=== PATIENT | female | born 1995 ===

== ENCOUNTER → 2024-02-29 12:23 | Outpatient (BNVA) | payer OTHER, SELFPAY | PROVIDERS: Visit Provider Counselor Mental Health ==

== ENCOUNTER → 2024-02-29 12:23 | Outpatient (AMB) | payer OTHER, SELFPAY ==
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
== END ==
PROVIDERS: Visit Provider Counselor Mental Health
DX: F43.9 Reaction to severe stress, unspecified (principal); Z63.8 Other specified problems related to primary support group
CPT/HCPCS: 90791

== ENCOUNTER 2024-03-14 08:11 | Outpatient (AMB) | payer OTHER, SELFPAY ==
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
== END 2024-03-14 09:00 | disposition home or self-care (01) ==
LOC: HO.HOP 08:11
PROVIDERS: Visit Provider Counselor Mental Health
DX: F43.9 Reaction to severe stress, unspecified (principal)
CPT/HCPCS: 90837

== ENCOUNTER → 2024-03-14 08:11 | Outpatient (BNVA) | payer OTHER, SELFPAY | PROVIDERS: Visit Provider Counselor Mental Health ==

== ENCOUNTER → 2024-03-28 08:28 | Outpatient (BNVA) | payer OTHER, SELFPAY | PROVIDERS: Visit Provider Counselor Mental Health ==

== ENCOUNTER → 2024-03-28 08:28 | Outpatient (AMB) | payer OTHER, SELFPAY ==
--- NOTE | 2024-03-28 08:05 | A.OFFWM_ITS ---
Intake Intake Visit Reasons: VIDEO OP Therapy Behavioral Health Assessment Weight Management Therapy Therapy Notes Details Subjective: PT reports she is doing well with her health and . But, feeing stressed about concerns her workplace and with her parents as she's not working for them anymore as of this Wednesday. Objective: PT presents for a follow up visit via Telehealth. Discussed functioning and ongoing sources of stress. Supportive and reflective listening implemented. Identified triggers and responses. Analysis of scenarios for role playing. Worked on communication skills, role playing completed using I-statements and XYZ formula for effective communication. Assessment/Response: * Mental status: Anxious, oriented X3, alert, cooperative. Intact functioning despite Sx of anxiety due to stress. * Risk reported/identified: None PT was open and active in session. She responded well to modality. Plan: Continue bi-weekly sessions. Assessment & Plan Assessment & Plan (1) Trauma and stressor-related disorder: Code(s): F43.9 - Reaction to severe stress, unspecified Plan Continue meeting on a bi-weekly basis Next junior: 04/11/2024 at 8am. Via telehealth. Telehealth Telehealth Telehealth Platform: [facility] Location of provider rendering services: other Location of patient: other Patient Identification confirmed using: Name, : Yes Telehealth method: video Patient verbally consented to treatment: Yes Patient verbally consented to billing insurance company: Yes Patient informed of any privacy concerns related to visit: No Minutes spent on Phone/Video with Pt.: 55 Coding Level of Care Code Established Pt Tele Psytx >53 mins ([id number]) Patient Type Established Diagnoses Trauma and stressor-related disorder F43.9 Time Spent (min) 55 Comment Start time: 8:05am - End time: 9:00am.
== END ==
PROVIDERS: Visit Provider Counselor Mental Health
DX: F43.9 Reaction to severe stress, unspecified (principal)
CPT/HCPCS: 90837

== ENCOUNTER → 2024-04-11 08:10 | Outpatient (AMB) | payer OTHER, SELFPAY ==
--- NOTE | 2024-04-11 08:00 | MHC.WMTHER ---
Intake Intake Visit Reasons: VIDEO OP Therapy Behavioral Health Assessment Weight Management Therapy Therapy Notes Details Subjective: PT reports she has been dealing with mixed feelings. Happy about her pregancy, upset about recent family events and very sensitive at times; she recognizes this might be due to emotions. Objective: PT presents for a follow up visit via Telehealth CBT-based interventions used. Worked in Anxiety management, mainly on anticipated worries. Problem solving method to address current worries. Communication, role playing completed to address recent family events causing her upset feelings. Constructive feedback provided. Assessment/Response: Mental status: sensitive but WNL. Functioning is intact. Risk reported/identified: None reported or identified. PT was open, active and responded well to interventions. Plan: Continue sessions on a bi-weekly basis. Assessment & Plan Assessment & Plan (1) Trauma and stressor-related disorder: Code(s): F43.9 - Reaction to severe stress, unspecified Plan Homework: Find out about housing options. Continue sessions on a bi-weekly basis. Next junior: 04/25 @8am, TH. Telehealth Telehealth Telehealth Platform: [employer] Location of provider rendering services: other Location of patient: address on file Patient Identification confirmed using: Name, : Yes Telehealth method: video Patient verbally consented to treatment: Yes Patient verbally consented to billing insurance company: Yes Patient informed of any privacy concerns related to visit: Yes Minutes spent on Phone/Video with Pt.: 60 Coding Level of Care Code Established Pt Tele Psytx >53 mins ([id number]) Patient Type Established Diagnoses Trauma and stressor-related disorder F43.9 Time Spent (min) 60 Comment Start time: 8:00am, End time: 9:00am
== END ==
PROVIDERS: Visit Provider Counselor Mental Health
DX: F43.9 Reaction to severe stress, unspecified (principal)
CPT/HCPCS: 90837

== ENCOUNTER → 2024-04-11 08:10 | Outpatient (BNVA) | payer OTHER, SELFPAY | PROVIDERS: Visit Provider Counselor Mental Health ==

== ENCOUNTER → 2024-04-25 08:14 | Outpatient (BNVA) | payer OTHER, SELFPAY | PROVIDERS: Visit Provider Counselor Mental Health ==

== ENCOUNTER → 2024-04-25 08:14 | Outpatient (AMB) | payer OTHER, SELFPAY ==
--- NOTE | 2024-04-25 08:00 | A.OFFWM_ITS ---
Intake Intake Visit Reasons: VIDEO OP Therapy Behavioral Health Assessment Weight Management Therapy Therapy Notes Details Subjective: PT reports she has been very anxious and stressed due to her mother's housing issues, finances and other events. She had a panic attacks last week and has been outthinking and having intrusive thoughts and feeling more worried that usual. Objective: PT presents for a follow up visit via Telehealth. Discussed functioning and processed triggers. Completed ABC analysis and identified her responses. Worked in Sx management. Used CBT-based interventions. Assessment/Response: * Mental status: stressed, anxious, over thinking. Alert, Oriented X3. functioning:midly impaired. * Risk reported/identified: none PT was open, active and responded well to interventions.she presents aware of her triggers and was very insigtfull. Assessment & Plan Assessment & Plan (1) Trauma and stressor-related disorder: Code(s): F43.9 - Reaction to severe stress, unspecified Plan Follow up in 1 month, as client has an appointment 05/09. Next junior: 05/23 at 8am, telehealth. Telehealth Telehealth Telehealth Platform: [employer] Location of provider rendering services: other ([place], [place]) Location of patient: address on file Patient Identification confirmed using: Name, : Yes Telehealth method: video Patient verbally consented to treatment: Yes Patient verbally consented to billing insurance company: Yes Patient informed of any privacy concerns related to visit: Yes Minutes spent on Phone/Video with Pt.: 60 Coding Level of Care Code Established Pt Tele Psytx >53 mins ([id number]) Patient Type Established Diagnoses Trauma and stressor-related disorder F43.9 Time Spent (min) 60 Comment Start time: 8:00am, End time: 9:00am.
== END ==
PROVIDERS: Visit Provider Counselor Mental Health
DX: F43.9 Reaction to severe stress, unspecified (principal)
CPT/HCPCS: 90837

== ENCOUNTER 2024-05-23 08:13 | Outpatient (AMB) | payer OTHER, SELFPAY ==
--- NOTE | 2024-05-23 08:00 | A.OFFWM_ITS ---
Intake Intake Visit Reasons: VIDEO OP Therapy Behavioral Health Assessment Weight Management Therapy Therapy Notes Details Subjective: PT reports she has been dealing with different sources of stress. Feeling anxious and dealing with catastrophic thinking around . Objective: PT presents for a follow up visit via Telehealth. Processed sources of stress and discussed cycle of anxiety while reflecting on her own experience and how her responses fit on these and how to better cope with Sx while overcoming them. Worked in how to incorporate stress/anxiety management techniques on bedtime routine. Reflected in ways to continue setting boundaries with family and increasing attempts for adopting assertive style. Used CBT and CPT based interventions. Assessment/Response: * Mental status: anxious, outthinking, worried. Alert, oriented x3 * Risk reported/identified:none PT responded well to interventions. Agreed to implement techniques suggested. Plan: Continue sessions on a bi-weekly basis. We scheduled sessions up to august/2024. Assessment & Plan Assessment & Plan (1) Trauma and stressor-related disorder: Code(s): F43.9 - Reaction to severe stress, unspecified Plan Follow up in 2 weeks. Recommended to utilize a gratitude journal al bedtime, and implement other mindfulness techniques for bedtime to support restful night with less emotional distress. Next junior: 06/06/2024 at 8a,. Telehealth Telehealth Telehealth Telehealth Platform: [employer] Location of provider rendering services: other ([place], [place]) Location of patient: address on file Patient Identification confirmed using: Name, : Yes Telehealth method: video Patient verbally consented to treatment: Yes Patient verbally consented to billing insurance company: Yes Patient informed of any privacy concerns related to visit: Yes Minutes spent on Phone/Video with Pt.: 60 Coding Level of Care Code Established Pt Tele Psytx >53 mins ([id number]) Patient Type Established Diagnoses Trauma and stressor-related disorder F43.9 Time Spent (min) 60 Comment start time:8am, End time: 9am
== END 2024-05-23 14:32 | disposition home or self-care (01) ==
PROVIDERS: Visit Provider Counselor Mental Health
DX: F43.9 Reaction to severe stress, unspecified (principal)
CPT/HCPCS: 90837

== ENCOUNTER → 2024-06-06 08:09 | Outpatient (AMB) | payer OTHER, SELFPAY ==
--- NOTE | 2024-06-06 08:00 | MHC.WMTHER ---
Intake Intake Visit Reasons: VIDEO OP Therapy Behavioral Health Assessment Weight Management Therapy Therapy Notes Details Subjective: PT reports she was anxious last week, initially after developing a rash and then after she fall on her driveway. She is doing well now, reports she has been using tecniques provided, and after appointments with providers and getting positive feedback she is less worried. PT reported ongoing issues managing negative thinking. She got a coloring book to use when feeling anxious and has been doing with along with deep breathing and reports good results form it. Objective: PT presents for a F/up visit via telehealth. Discussed functioning and processed recent triggers, responses and coping mechanism used. Used CBT and mindfulness techniques for Sx management. completed a gratitude exercise and ways to increase the practice/engagement on spiritual, trina-based activities to reinforce flexible, hopeful thinking. Used cognitive challenging and re-framing on job-related stress. Constructive feedback provided. Assessment/Response: Mental status: stable, alert, oriented X3. Good functioning. Risk reported/identified: None PT responded well to interventions. Assessment & Plan Assessment & Plan (1) Trauma and stressor-related disorder: Code(s): F43.9 - Reaction to severe stress, unspecified Plan F/up in 1 month per client's request due to upcoming Holidays. She was already scheduled for 06/20, provider removed her from that day. Next junior: 07/04/2024 at 8am, [employer]. Telehealth Telehealth Telehealth Platform: [employer] Location of provider rendering services: other ([place], [place]) Location [place]: [place] Patient Identification confirmed using: Name, : Yes Telehealth method: video Patient verbally consented to treatment: Yes Patient verbally consented to billing insurance company: Yes Patient informed of any privacy concerns related to visit: Yes Minutes spent on Phone/Video with Pt.: 60 Coding Level of Care Code Established Pt Tele Psytx >53 mins ([id number]) Patient Type Established Diagnoses Trauma and stressor-related disorder F43.9 Time Spent (min) 60
== END ==
LOC: HO.HOP 08:09
PROVIDERS: Visit Provider Counselor Mental Health
DX: F43.9 Reaction to severe stress, unspecified (principal)
CPT/HCPCS: 90837

== ENCOUNTER → 2024-06-06 08:09 | Outpatient (BNVA) | payer OTHER, SELFPAY | PROVIDERS: Visit Provider Counselor Mental Health ==

== ENCOUNTER 2024-07-04 08:13 | Outpatient (AMB) | payer OTHER, SELFPAY ==
--- NOTE | 2024-07-04 08:00 | A.OFFWM_ITS ---
Intake Intake Visit Reasons: VIDEO OP Therapy Behavioral Health Assessment Weight Management Therapy Therapy Notes Details Subjective: PT reports she is 24 weeks . Due date 10/19/24. stated she had a great time around the holidays and things has been calmed in general, besides some stressfull events within the family. Objective: PT presents for a f/up visit via Telehealth. Discussed functioning and routine, PT shared about recent holidays celebration. Processed experiences triggering worry and anxiety symptoms, it's impact on her functioning and attempts to resolve it. Discussed problem-solving and calming skills to continue managing better these Sx. CBT and CPT implemented, while provided constructive feedback and used reflective listening. Assessment/Response: * Mental status: WNL * Risk reported/identified: None PT was active and engaged in the session, also responded well to interventions. Assessment & Plan Assessment & Plan (1) Trauma and stressor-related disorder: Code(s): F43.9 - Reaction to severe stress, unspecified Plan F/up in 1 month Next junior: 08/01/2024 at 8am, Telehealth Telehealth Telehealth Telehealth Platform: [employer] Location of provider rendering services: other ([place], [place]) Location of patient: other ([facility]. [place], [place]) Patient Identification confirmed using: Name, : Yes Telehealth method: video Patient verbally consented to treatment: Yes Patient verbally consented to billing insurance company: Yes Patient informed of any privacy concerns related to visit: Yes Minutes spent on Phone/Video with Pt.: 60 Coding Level of Care Code Established Pt Tele Psytx >53 mins ([id number]) Patient Type Established Diagnoses Trauma and stressor-related disorder F43.9 Time Spent (min) 60
== END 2024-07-04 11:18 | disposition home or self-care (01) ==
LOC: HO.HOP 08:13
PROVIDERS: Visit Provider Counselor Mental Health
DX: F43.9 Reaction to severe stress, unspecified (principal)
CPT/HCPCS: 90837

== ENCOUNTER → 2024-07-04 08:13 | Outpatient (BNVA) | payer OTHER, SELFPAY | PROVIDERS: Visit Provider Counselor Mental Health ==

== ENCOUNTER → 2024-08-01 08:00 | Outpatient (AMB) | payer OTHER, SELFPAY ==
--- NOTE | 2024-08-01 08:00 | A.OFFWM_ITS ---
Intake Intake Visit Reasons: VIDEO OP Therapy Behavioral Health Assessment Weight Management Therapy Therapy Notes Details Subjective: PT reports she has been stressed about finances, as his partner has been out of work and the financial load has been on her. On the other hand, has been easily overwhelmed and dealing with negative/catastrophic thoughts/images involving her pregancy. Objective: PT presents for a f/up visit via Telehealth. . CBT and CPT implemented, while provided constructive feedback and used reflective listening. We focused on problem solving, and exploration of alternatives based on the things out/within her control. PT is aware a lot of her fears are based on lack of knwledge and there are steps she can follow to have the answers she needs and have some re-assurance and peace of mind . Processed experiences triggering worry and anxiety symptoms, it's impact on her functioning and attempts to resolve it. Reviewed coping skills and plan for triggers. Assessment/Response: * Mental status: stressed but good functioning. * Risk reported/identified: None PT presents stable, less anxious and feeling grounded despite some financial stress. PT was active in session an responded well to intervention. Assessment & Plan Assessment & Plan (1) Trauma and stressor-related disorder: Code(s): F43.9 - Reaction to severe stress, unspecified Plan Homework: clarify her benefit package at work, what they offer in terms of detention of tax-benefit accounts. Continue meeting on a monthly basis. Next junior: 08/29/2024 at 8am, Telehealth Telehealth Telehealth Telehealth Platform: [employer] Location of provider rendering services: other ([place]. [place], [place]) Location of patient: other ([place], [place]) Patient Identification confirmed using: Name, : Yes Telehealth method: video Patient verbally consented to treatment: Yes Patient verbally consented to billing insurance company: Yes Patient informed of any privacy concerns related to visit: Yes Minutes spent on Phone/Video with Pt.: 60 Coding Level of Care Code Established Pt Tele Psytx >53 mins ([id number]) Patient Type Established Diagnoses Trauma and stressor-related disorder F43.9 Time Spent (min) 60
--- OUTSIDE RECORDS SUMMARY | 2024-08-01 08:18 | XMS_ITS | Clinical Summary ---
Author Organization [facility] Address [address] [place] [address] Care Team Providers Care Blood Bank Attendant Name Role Phone Zach Anthony MD Primary Care Provider + Allergies No known active allergies Medications Medication Sig Dispensed Refills Start Date End Date Status Cholecalciferol (VITAMIN D3) 20 MCG (800 UNIT) Tab Take 1 tablet by mouth daily. 30 Tab 2 07/12/2020 Active vitamin D (ERGOCALCIFEROL) 1.25 MG (75997 UT) capsule Take 1 capsule by mouth once a week for 360 days. One tablet once weekly 4 capsule 3 08/02/2020 Active Diclofenac Sodium 1 % GelIndications:Sprai n of left ankle, unspecified ligament, initial encounter Apply 2 g topically 3 times daily. 100 g 0 02/16/2022 Active Benzoyl Peroxide ([place] Benzoyl Peroxide Wash) 7 % LiquidIndications:Ac ne, unspecified acne type Apply 2 g topically 2 times daily. 100 mL 1 02/16/2022 Active buPROPion (WELLBUTRIN XL) 300 MG 24 hr tablet Take 1 Tablet by mouth daily. 0 12/01/2022 Active norethindrone-ethiny l estradiol (Necon 0.5/35, 28,) 0.5-35 MG-MCG per tablet Take 1 Tablet by mouth daily for 360 days. 84 Tablet 3 04/06/2023 Active Vit-Fe Fumarate-FA ( Plus) 27-1 MG TabIndications:Irreg ular menses Take 1 Tablet by mouth daily. 30 Tablet 12 02/23/2024 Active Active Problems Problem Noted Date PCOS (polycystic ovarian syndrome) 07/11 Irregular menses 02/07/2021 Last Assessment & Plan: HCG negative. Discussed normal frequency and length of menses Counseled on the effects of stress, changes in sleep, diet, and exercise on the endocrine system Will continue with expectant management at this time. Patient to return if irregular bleeding continues for >3 months. ASCUS of cervix with negative high risk HPV 10/28/2020 Abnormal uterine bleeding (AUB) 10/12/19 21 Last Assessment & Plan: Discussed normal frequency and length of menses Reviewed treatment options if AUB continues including expectant management, Motrin 600mg q6 hours for the first 3-5 days of menses, hormonal therapy or IUD. Patient elects for expectant management and Motrin therapy at this time. She will follow-up as needed. Morbid obesity due to excess calories ADHD (attention deficit hyperactivity di sorder) 08/05/2015 Depression 08/05/2015 Anxiety 08/05/2015 Acne 02/17/2012 Hidradenitis suppurativa 02/17/2012 Dyspepsia Resolved Problems Problem Noted Date Resolved Date Elevated TSH 08/13/2016 01/13/2019 Moderate obesity 08/05/2015 12/13/2017 Immunizations Name Administration Dates Next Due Influenza (> 6 Months) 06/26/2016 Tdap 12/23/2022 Family History Medical History Relation Name Comments Thyroid Disorder Brother Hypertension Father joint problems prosatate cancer Maternal Grandfather Diabetes Mother Glaucoma Mother Hypertension Mother Sleep Apnea Mother Uterine Cancer Mother had hysterect miriam Blindness Negative Hx CA Breast Negative Hx CA Ovarian Negative Hx Cataract Negative Hx Macular Degeneration Negative Hx Strabismus Negative Hx Relation Name Status Comments Brother Father Alive Maternal Grandfather Maternal Grandmother Mother Alive Bilateral BKA Social History Tobacco Use Types Packs/Day Years Used Date Smoking Tobacco: Never Smokeless Tobacco: Never Tobacco Cessation:Counseling Given: Not Answered Alcohol Use Standard Drinks/Week Comments No 0 (1 standard drink = 0.6 oz pur e alcohol) Sex Assigned at Date Recorded Not on file Job Start Date Occupation Industry Not on file Not on file Not on file Last Filed Vital Signs Vital Sign Reading Time Taken Comments Blood Pressure 128/72 02/23/2024 3:17 PM EDT Pulse 72 02/23/2024 3:17 PM EDT Temperature 36.4 ??C (97.5 ??F) 12/23/2022 3:06 PM ED T Respiratory Rate 14 12/28/2022 4:26 PM EDT Oxygen Saturation 100% 01/13/2019 10:14 AM EDT Inhaled Oxygen Concentration - - Weight 174.2 kg (384 lb) 02/23/2024 3:17 PM EDT Height 165.1 cm (5' 5 ) 02/23/2024 3:17 PM EDT Body Mass Index 63.9 02/23/2024 3:17 PM EDT Plan of Treatment Health Maintenance Due Date Last Done Comments Covid-19 Vaccine (#1) 1995 INFLUENZA (#1) 2024 06/26/2016 BMI CHECK/ADVISE 06/28/2024 04/06/2023, 03/2023, 12/23/2022, Additional history exists DEPRESSION SCREENING/FOLLOWUP 06/28/2024, 12/23/2022, 02/16/2022, Additional history exists SOCIAL NEEDS SCREENING 06/28/2024 12/23/2022 CERVICAL CANCER SCREENING 04/03/20252021, 10/18/2020, 07/30/2016 BASELINE HEALTH EXAM 18-39 12/24/202712/23, 04/29/2018, 12/13/2017, Additional history exists CHOLESTEROL SCREENING 12/26/2027 12/25/2022 , 04/29/2018, 06/26/2016, Additional history exists DTAP/TDAP/TD (2 - Td or Tdap) 12/23/2032 12/23/2022 PNEUMOCOCCAL VACCINE FOR HIG H RISK PATIENTS (#1) 2060 Care Teams Blood Bank Attendant Relationship Specialty Start Date End Date Zach Anthony MD [address] [place] [id number] PCP - General Internal Medicine 02/13/22
--- OUTSIDE RECORDS SUMMARY | 2024-08-01 08:18 | XMS_ITS | Encounter Summary ---
Author Organization [facility] Address [address] [place] [address] Care Team Providers Care Structural Steel Engineer Name Role Phone Emelina Moran MD Primary Care Provider Unavaila Sara Valle DO Primary Care Pro vider Unavailable Zach Anthony MD Primary Care Provider + Encounter Details Date Type Department Care Team Description 03/24/2016 Urgent Care Technician Report Medical Records [address] [place] [id number] Abstract, Provider Social History Tobacco Use Types Packs/Day Years Used Date Smoking Tobacco: Never Smokeless Tobacco: Never Alcohol Use Standard Drinks/Week Comments No 0 (1 standard drink = 0.6 oz pur e alcohol) Sex Assigned at Date Recorded Not on file Job Start Date Occupation Industry Not on file Not on file Not on file documented as of this encounter Plan of Treatment Not on file documented as of this encounter Visit Diagnoses Not on filedocumented in this encounter Care Teams Structural Steel Engineer Relationship Specialty Start Date End Date Emelina Moran MD PCP - General Internal Medicine 07/02/15 06/23/16 Sara Lopez DO PCP - General Internal Medicine 06/24/16 02/12/22 Zach Anthony MD [address] [place] [id number] PCP - General Internal Medicine 02/13/22 documented as of this encounter
--- OUTSIDE RECORDS SUMMARY | 2024-08-01 08:18 | XMS_ITS | Clinical Summary ---
Author Organization [facility] Address [address] [place] [address] Care Team Providers Care Systems Analyst Name Role Phone Zach Anthony MD Primary Care Pr ovider Allergies No known active allergies Medications Medication Sig Dispensed Refills Start Date End Date Status vit [id number] ( Plus Vitamin-Mineral) 27 mg iron- 1 mg tablet Take 1 Tablet by mouth daily. 02/23/2024 Active buPROPion XL (WELLBUTRIN XL) 300 mg 24 hr tablet Take 1 Tablet by mouth daily. 12/01/2022 Active diclofenac (VOLTAREN) 1 % topical gel Apply 2 g topically 3 times daily. 02/16/2022 Active benzoyl peroxide 7 % cleanser Apply 2 g topically 2 times daily. 02/16/2022 Active CHOLECALCIFEROL, VITAMIN D3, ORAL Cholecalciferol (VITAMIN D3) 20 MCG (800 UNIT) Tab Take 1 tablet by mouth daily 07/12/2020 Active Active Problems Problem Noted Date Diagnosed Date Dyspepsia 06/30/2024 PCOS (polycystic ovarian syndrome) 07/11/2021 Irregular menses 02/07/2021 Overview (06/30/2024): Last Assessment & Plan: HCG negative. Discussed normal frequency and length of menses Counseled on the effects of stress, changes in sleep, diet, and exercise on the endocrine system Will continue with expectant management at this time. Patient to return if irregular bleeding continues for >3 months. ASCUS of cervix with negative high risk HPV 05/0 08/2020 Abnormal uterine bleeding (AUB) 10/11/2020 Overview (06/30/2024): Last Assessment & Plan: Discussed normal frequency and length of menses Reviewed treatment options if AUB continues including expectant management, Motrin 600mg q6 hours for the first 3-5 days of menses, hormonal therapy or IUD. Patient elects for expectant management and Motrin therapy at this time. She will follow-up as needed. Morbid obesity due to excess calories 06/26/2016 ADHD (attention deficit hyperactivity disorder) 08/05/2015 Anxiety 08/05/2015 Depression 08/05/2015 Acne 02/17/2012 Hidradenitis suppurativa 02/17/2012 Immunizations Name Administration Dates Next Due Influenza trivalent, 0.5mL, preservative free (Fluarix; FluLaval; Fluzone) ages 6mo and older (Afluria) 3 years and older 06/26/2016 Tdap Tetanus diptheria acell ular pertussis (Boostrix; Adacel) 7yo and older 12/23/2022 Surgical History Surgery Date Site/Laterality Comments HYSTEROSCOPY 08/2020 PROCEDURE: UT HYSTEROSCOPY BX ENDOMETRIUM&/POLYPC W/WO D&C; COMMENT: Benign Medical History Medical History Date Comments ADHD (attention deficit hype ractivity disorder) 08/05/2015 DX:ADHD (attention deficit hyperactivity disorder) Depression 08/05/2015 DX:Depression; C OMMENT: therapy at [facility] Anxiety 08/05/2015 DX:Anxiety Moderate obesity 08/05/2015 DX:Moderate obe sity Dyspepsia DX:Dyspepsia PCOS (polycystic ovarian syndrome) DX:PCOS (polycystic ovarian syndrome) Family History Medical History Relation Name Comments Thyroid disease Brother Hypertension Father joint problems Other: prosatate cancer Maternal Grandfather Diabetes Mother Glaucoma Mother Hypertension Mother Sleep apnea Mother Uterine cancer Mother had hysterect miriam Blindness Neg Hx Breast cancer Neg Hx Cataracts Neg Hx Macular degeneration Neg Hx Ovarian cancer Neg Hx Strabismus Neg Hx Relation Name Status Comments Brother Father Alive Maternal Grandfather Maternal Grandmother Mother Alive Bilateral BKA Social History Tobacco Use Types Packs/Day Years Used Date Smoking Tobacco: Never Smokeless Tobacco: Never Alcohol Use Standard Drinks/Week Comments No 0 (1 standard drink = 0.6 oz pur e alcohol) Sex and Gender Information Value Date Recorded Sex Assigned at Not on file Gender Identity Not on file Sexual Orientation Not on file Obstetrics History Last Filed Vital Signs Vital Sign Reading Time Taken Comments Blood Pressure 110/80 04/06/2023 11:21 AM EDT Pulse 86 04/06/2023 11:21 AM EDT Temperature - - Respiratory Rate - - Oxygen Saturation - - Inhaled Oxygen Concentration - - Weight 171 kg (378 lb) 04/06/2023 11:21 AM EDT Height 165.1 cm (5' 5 ) 12/23/2022 3:06 PM EDT Body Mass Index 62.9 12/23/2022 3:06 PM EDT Plan of Treatment Health Maintenance Due Date Last Done Comments Hepatitis B Vaccines (1 of 3 - 19+ 3-dose series) 2014 Depression Screening 06/06/2022 HIV Screening 06/06/2022 Hepatitis C Screening 06/06/2022 Social Influencers of Health Screening 06/06/2022 COVID-19 Vaccine ( - 2023-2 5 season) 2024 Influenza Vaccine (#1) 2024 06/26/2016 Cervical Cancer Screening: P ap Smear 04/03/2025 04/03/2022, 04/03/2022, 10/18/2020 Cholesterol Screening (Lipid Panel) 12/26/2027 12/25/2022 DTaP,Tdap,and Td Vaccines (2 - Td or Tdap) 12/23/2032 12/23/2022 HIB Vaccines Aged Out No longer eligi ble based on patient's age to complete this topic HPV Vaccines Aged Out No longer eligi ble based on patient's age to complete this topic Hepatitis A Vaccines Aged Out No long er eligible based on patient's age to complete this topic IPV Vaccines Aged Out No longer eligi ble based on patient's age to complete this topic MMR Vaccines Aged Out No longer eligi ble based on patient's age to complete this topic Meningococcal ACWY Vaccine Aged Out N o longer eligible based on patient's age to complete this topic Pneumococcal Vaccine: Pediatrics (0 to 5 Years) and At-Risk Patients (6 to 64 Years) Aged Out No longer eligible b ased on patient's age to complete this topic RSV Immunization Patients Under 20 months Aged Out No longer eligible b ased on patient's age to complete this topic Varicella Vaccines Aged Out No longer eligible based on patient's age to complete this topic Procedures Procedure Name Priority Date/Time Associated Diagnosis Comments LIPID PANEL Routine 12/25/2022 PAP SMEAR Routine 04/03/2022 from Last 3 Months or Most Recently Relevant to Health Maintenance Results * Lipid panel (12/25/2022) LDL/HDL Ratio 3 0 - 4 Triglycerides 90 0 - 150 mg/dL Cholesterol 132 0 - 200 mg/dL HDL 49 40 mg/dL LDL Cholesterol 65 0 - 100 mg/dL Blood Venous blood specimen / Unknown Historical Provider MD LAB BLOOD ORDERAB LES * Pap smear (04/03/2022) 04/03/2022 Narrative HISTORICAL TESTING LAB RESULTING AGENCY - 04/13/2022 2:00 PM EDT [id number] THINPREP PAP, IMAGED: NEGATIVE FOR SQUAMOUS INTRAEPITHELIAL LESION AND MALIGNANCY . YODIT PETTY(ASCP) (CASE ELECTRONICALLY SIGNED 04 13 2022) ADEQUACY: SATISFACTORY ENDOCERVICAL/TRANSFORMATION ZONE COMPONENT PRESENT. SOURCE: THINPREP PAP HPV IF ASCUS, CERVICAL, IMAGED CLINICAL INFORMATION: HPV IF DIAGNOSIS OF ASCUS. PAP HX POSITIVE. [Z01.419] Yulia Barry CNM LAB CYTOLOGY ORDERAB LES HISTORICAL TESTING LAB RESULTING AGENCY from Last 3 Months or Most Recently Relevant to Health Maintenance Care Teams Systems Analyst Relationship Specialty Start Date End Date Zach Anthony MD [address] [place], [place] PCP - General Internal Medicine 02/13/22
--- OUTSIDE RECORDS SUMMARY | 2024-08-01 08:18 | XMS_ITS | Encounter Summary ---
Author Organization [facility] Address [address] [place] [address] Care Team Providers Care Director Of Graduate Admissions Name Role Phone Sara Lopez DO Primary Care Pro vider Unavailable Zach Anthony MD Primary Care Provider + Encounter Details Date Type Department Care Team Description 01/17/2021 Pt. Non Urgent Medical Question OBGYN - [place] [address] [place] [address] Heavenly Melendez CNM [address] [place] [address] Social History Tobacco Use Types Packs/Day Years Used Date Smoking Tobacco: Never Smokeless Tobacco: Never Alcohol Use Standard Drinks/Week Comments No 0 (1 standard drink = 0.6 oz pur e alcohol) Sex Assigned at Date Recorded Not on file Job Start Date Occupation Industry Not on file Not on file Not on file COVID-19 Exposure Response Date Recorded In the last month, have you been in contact with someone who was confirmed or suspected to have Coronavirus / COVID-19? No / Unsure 12/18/2020 9:40 AM EDT documented as of this encounter Miscellaneous Notes * Telephone Encounter - Brenda Pace R.N. - 01/17/2021 11:21 AM EDTFrom: Janiya Mcdaniel To: Heavenly Melendez CNM Sent: 01/17/2021 11:07 AM EDT Subject: Question Hello, I am continuing to bleed again and it's been three weeks straight of bleeding everyday. I amconsidering control to see if it actually works to stop the bleeding and get my cycle controlled. Do I need to make an appointment to see you or can I just get the prescripton sent to my pharmacy? Thank you, Janiya meeks documented in this encounter Plan of Treatment Not on file documented as of this encounter Visit Diagnoses Not on filedocumented in this encounter Care Teams Director Of Graduate Admissions Relationship Specialty Start Date End Date Sara Lopez DO PCP - General Internal Medicine 06/24/16 02/12/22 Zach Anthony MD [address] [place] [id number] PCP - General Internal Medicine 02/13/22 documented as of this encounter
--- OUTSIDE RECORDS SUMMARY | 2024-08-01 08:18 | XMS_ITS | Encounter Summary ---
Author Organization [facility] Address [address] [place] [address] Care Team Providers Care Landscape Architecture Teacher Name Role Phone Zach Anthony MD Primary Care Provider + Encounter Details Date Type Department Care Team Description 06/17/2022 Telephone Adult Medicine [address] [address] Zach Anthony MD [address] [place] [address] [phone] Social History Tobacco Use Types Packs/Day Years [...] on filedocumented in this encounter Care Teams Landscape Architecture Teacher Relationship Specialty Start Date End Date Zach Anthony MD [address] [place] [address] [phone] PCP - General Internal Medicine 02/13/22 documented as of this encounter
--- OUTSIDE RECORDS SUMMARY | 2024-08-01 08:18 | XMS_ITS | Encounter Summary ---
Author Organization [facility] Address [address] [place] [address] Care Team Providers Care Human Resources Support Specialist Name Role Phone Sara Lopez DO Primary Care Pro vider Unavailable Zach Anthony MD Primary Care Provider + Encounter Details Date Type Department Care Team Description 10/15/2020 [facility] Medical Records [address] [place] [id number] Abstract, Provider Social History Tobacco Use Types [...] have Coronavirus / COVID-19? No / Unsure 10/18/2020 2:29 PM EDT documented as of this encounter Plan of Treatment Not on file documented as of this encounter Visit Diagnoses Not on filedocumented in this encounter Care Teams Human Resources Support Specialist Relationship Specialty Start Date End Date Sara Lopez DO PCP - General Internal Medicine 06/24/16 02/12/22 Zach Anthony MD [address] [place] [id number] PCP - General Internal Medicine 02/13/22 documented as of this encounter
== END ==
LOC: HO.HOP 08:14
PROVIDERS: Visit Provider Counselor Mental Health
DX: F43.9 Reaction to severe stress, unspecified (principal)
CPT/HCPCS: 90837

== ENCOUNTER 2024-08-29 08:18 | Outpatient (AMB) | payer OTHER, SELFPAY ==
--- NOTE | 2024-08-29 08:20 | A.OFFWM_ITS ---
Intake Intake Visit Reasons: VIDEO OP Therapy Behavioral Health Assessment Weight Management Therapy Therapy Notes Details Subjective: The patient reports feeling generally well despite experiencing some recent stressful events. She notes tension in her relationship with her boyfriend, particularly around his role at home. She expresses frustration that she feels his needs are not being met and there is difficulty in addressing these concerns effectively. Objective: The patient presents for a follow-up visit. The session focused on discussing her current functioning and recent stressors. We explored the ongoing tension in her relationship and the challenges she is facing in communication with her boyfriend. The patient actively participated in practicing the XYZ formula for effective communication, which was introduced to help her express her concerns in a clear and constructive manner. Assessment/Response: * Mental Status: The patient appears well-groomed and appropriately dressed. She is alert and oriented to person, place, and time. Her mood is described as ?stressed,? but she is able to engage in conversation and reflect on her situation. Thought processes are logical and coherent. No signs of acute distress or significant cognitive impairment observed. * Risk: The patient denies any current or past thoughts of self-harm or harm to others. No indication of suicidal or homicidal ideation was reported during the session. She remains at low risk for safety concerns at this time. Assessment & Plan Assessment & Plan (1) Trauma and stressor-related disorder: Code(s): F43.9 - Reaction to severe stress, unspecified Plan Continue meeting on a monthly basis. Next junior: 09/26/2024 at 8am, Telehealth Telehealth Telehealth Telehealth Platform: Telephone Location of provider rendering services: other Location of patient: address on file Patient Identification confirmed using: Name, : Yes Telehealth method: voice only Patient verbally consented to treatment: Yes Patient verbally consented to billing insurance company: Yes Patient informed of any privacy concerns related to visit: Yes Minutes spent on Phone/Video with Pt.: 65 Coding Level of Care Code Established Pt Tele Psytx >53 mins (23083) Patient Type Established Diagnoses Trauma and stressor-related disorder F43.9 Time Spent (min) 65 Comment Start time: 8:00am, End time: 9:05am
--- OUTSIDE RECORDS SUMMARY | 2024-08-29 08:40 | XMS_ITS | Clinical Summary ---
Author Organization [facility] Address [address] [place] [address] Care Team Providers Care Ground Support Agent Name Role Phone Zach Anthony MD Primary Care Pr ovider Allergies No known active allergies Medications vit no.180-iron-fo lic ( Plus Vitamin-Minera l) 27 mg iron- 1 mg tablet Take 1 Tablet by mouth daily. 02/23/20 24 Active buPROPion XL (WELLBUTRIN XL) 300 mg 24 hr tablet Take 1 Tablet by mouth daily. 12/02/19 23 Active diclofenac (VOLTAREN) 1 % topical gel Apply 2 g topically 3 times daily. 02/17/20 22 Active benzoyl peroxide 7 % cleanser Apply 2 g topically 2 times daily. 02/17/20 22 Active CHOLECALCIFERO L, VITAMIN D3, ORAL Cholecalciferol (VITAMIN D3) 20 MCG (800 UNIT) Tab Take 1 tablet by mouth daily 07/12/19 21 Active Active Problems Problem Noted Date Diagnosed [...] of cervix with negative high risk HPV 05/08/2020 Abnormal uterine bleeding (AUB) 10/11/2020 Overview (06/30/2024): [...] Surgery Date Site/Laterality Comments HYSTEROSCOPY 08/2020 PROCEDURE: [place] HYSTEROSCOPY BX ENDOMETRIUM&/POLYPC W/WO D&C; COMMENT: Benign Medical History Medical History Date Comments ADHD (attention deficit hype ractivity disorder) 08/05/2015 DX:ADHD (attention deficit hyperactivity disorder) Depression 08/05/2015 DX:Depression; C OMMENT: therapy at [facility] Anxiety 08/05/2015 DX:Anxiety Moderate obesity 08/05/2015 DX:Moderate [...] drink = 0.6 oz pur e alcohol) Comments Unknown Sex and Gender Information Value Date Recorded Sex Assigned at Not on file Legal Sex Female 5:02 AM EST Gender Identity Not on file Sexual Orientation [...] patient's age to complete this topic Meningococcal B Vacine Aged Out No lo nger eligible based on patient's age to complete [...] 132 0 - 200 mg/dL HDL 49 >=40 mg/dL LDL Cholesterol 65 0 - 100 mg/dL Blood Venous blood specimen / Unknown Historical Provider MD LAB BLOOD ORDERABLES Eunice rich Result * Pap smear (04/03/2022) 04/03/2022 Narrative HISTORICAL TESTING LAB RESULTING AGENCY - 04/13/2022 2:00 PM EDT [id number] THINPREP PAP, IMAGED: NEGATIVE FOR SQUAMOUS INTRAEPITHELIAL LESION AND MALIGNANCY . YODIT PETTY(ASCP) (CASE ELECTRONICALLY SIGNED 04 13 2022) ADEQUACY: SATISFACTORY ENDOCERVICAL/TRANSFORMATION ZONE COMPONENT PRESENT. SOURCE: THINPREP PAP HPV IF ASCUS, CERVICAL, IMAGED CLINICAL INFORMATION: HPV IF DIAGNOSIS OF ASCUS. PAP HX POSITIVE. [Z01.419] Yulia Barry CNM LAB CYTOLOGY ORDERABLES Final Result HISTORICAL TESTING LAB RESULTING AGENCY from Last 3 Months or Most Recently Relevant to Health Maintenance Care Teams Ground Support Agent Relationship Specialty Start Date End Date Zach Anthony MD [address] [place], [place] PCP - General Internal Medicine 02/13/22
== END 2024-08-29 09:14 | disposition home or self-care (01) ==
LOC: HO.HOP 08:18
PROVIDERS: Visit Provider Counselor Mental Health
DX: F43.9 Reaction to severe stress, unspecified (principal)
CPT/HCPCS: 90837

== ENCOUNTER → 2024-08-29 08:18 | Outpatient (BNVA) | payer OTHER, SELFPAY | PROVIDERS: Visit Provider Counselor Mental Health ==

== ENCOUNTER 2024-09-26 08:13 | Outpatient (AMB) | payer OTHER, SELFPAY ==
--- NOTE | 2024-09-26 08:00 | A.OFFWM_ITS ---
Intake Intake Visit Reasons: VIDEO OP Therapy Behavioral Health Assessment Weight Management Therapy Therapy Notes Details Subjective: The patient reports feeling a mix of anxiety and excitement as her due date approaches. She mentions that her baby is breech, which will require a in a couple of weeks. While she is looking forward to the upcoming , she also expresses increased stress related to her work situation and the transition to maternity leave. The patient anticipates starting her leave soon, but the waiting period has caused some additional anxiety. Objective: The patient presents for a follow-up visit via Telehealth. During the session, we processed her emotions, focusing on the feelings of anxiety related to both her and work-related stress. The patient was able to identify sources of stress and discussed potential challenges in the upcoming weeks. We engaged in problem-solving strategies to address her concerns and worked on coping plans for various scenarios she is worried about, including how to manage stress during her maternity leave and the changes that may arise with the of her baby. Assessment/Response: * Mental Status: The patient appears engaged and communicative. Her mood fluctuates between anxiety and excitement, as she navigates the upcoming changes. Thought processes are logical, and she is able to reflect on her emotions in a coherent manner. There is no evidence of significant cognitive disturbance or acute distress. The patient demonstrates good insight into her feelings and is motivated to work on stress management. * Risk: The patient denies any thoughts of self-harm or harm to others. There are no signs of suicidal or homicidal ideation, and she reports feeling generally safe. Risk is low at this time. Assessment & Plan Assessment & Plan (1) Trauma and stressor-related disorder: Code(s): F43.9 - Reaction to severe stress, unspecified Plan - Continue to meet on a monthly basis for follow-up sessions. The patient is aware that sooner appointments are available if needed. - Continue to focus on stress management, coping strategies, and adjusting to the upcoming life changes. - Next appointment: 10/24/24 at 8:00 AM via Telehealth. Telehealth Telehealth Telehealth Platform: Telephone Location of provider rendering services: other Location of patient: address on file Patient Identification confirmed using: Name, : Yes Telehealth method: voice only Patient verbally consented to treatment: Yes Patient verbally consented to billing insurance company: Yes Patient informed of any privacy concerns related to visit: Yes Minutes spent on Phone/Video with Pt.: 60 Coding Level of Care Code Established Pt Tele Psytx >53 mins (77051) Patient Type Established Diagnoses Trauma and stressor-related disorder F43.9 Time Spent (min) 60
--- OUTSIDE RECORDS SUMMARY | 2024-09-26 08:28 | XMS_ITS | Clinical Summary ---
Author Organization [facility] Address [address] [place] [address] Care Team Providers Care Ekg Manager Name Role Phone Zach Anthony MD Primary Care Provider + Allergies No known active allergies Medications Medication Sig Dispensed Refills Start Date End Date Status Cholecalciferol (VITAMIN D3) 20 MCG (800 UNIT) Tab Take 1 tablet by mouth daily. 30 Tab 2 07/12/2020 Active vitamin D (ERGOCALCIFEROL) 1.25 MG (75592 UT) capsule Take 1 capsule by mouth once a week for 360 days. One tablet once weekly 4 capsule 3 08/02/2020 Active Diclofenac Sodium 1 % GelIndications:Sprai n of left ankle, unspecified ligament, initial encounter Apply 2 g topically 3 times daily. 100 g 0 02/16/2022 Active Benzoyl Peroxide (MO Benzoyl Peroxide Wash) 7 % LiquidIndications:Ac ne, [...] H RISK PATIENTS (#1) 2060 Care Teams Ekg Manager Relationship Specialty Start Date End Date Zach Anthony MD [address] [place] [phone] PCP - General Internal Medicine 02/13/22
--- OUTSIDE RECORDS SUMMARY | 2024-09-26 08:28 | XMS_ITS | Encounter Summary ---
Author Organization [facility] Address [address] [place] [address] Care Team Providers Care Pilot Plant Research Technician Name Role Phone Emelina Moran MD Primary Care Provider Unavaila Sara Valle DO Primary Care Pro vider Unavailable Zach Anthony MD Primary Care Provider + Encounter Details Date Type Department Care Team Description 03/24/2016 Principal Statistical Scientist Report Medical Records [address] [place] [id number] Abstract, Provider Social History Tobacco Use Types [...] on filedocumented in this encounter Care Teams Pilot Plant Research Technician Relationship Specialty Start Date End Date Emelina Moran MD PCP - General Internal Medicine 07/02/15 06/23/16 Sara Lopez DO PCP - General Internal Medicine 06/24/16 02/12/22 Zach Anthony MD [address] [place] [phone] PCP - General Internal Medicine 02/13/22 documented as of this encounter
--- OUTSIDE RECORDS SUMMARY | 2024-09-26 08:28 | XMS_ITS | Encounter Summary ---
Author Organization [facility] Address [address] [place] [address] Care Team Providers Care Supervisor [employer]builders Wood Name Role Phone Zach Anthony MD Primary Care Provider + Encounter Details Date Type Department Care Team Description 06/17/2022 Telephone Adult Medicine [address] [address] Zach Anthony MD [address] [place] [address] [phone] Social History Tobacco Use Types Packs/Day Years [...] on filedocumented in this encounter Care Teams Supervisor [employer] Relationship Specialty Start Date End Date Zach Anthony MD [address] [place] [address] [phone] PCP - General Internal Medicine 02/13/22 documented as of this encounter
--- OUTSIDE RECORDS SUMMARY | 2024-09-26 08:28 | XMS_ITS | Encounter Summary ---
Author Organization [facility] Address [address] [place] [address] Care Team Providers Care Sports Equipment Racker Name Role Phone Emelina Moran MD Primary Care Provider Unavaila Sara Valle DO Primary Care Pro vider Unavailable Zach Anthony MD Primary Care Provider + Encounter Details Date Type Department Care Team Description 08/05/2015 Release of Information Medical Records [address] [place] [phone] Abstract, Provider Social History Tobacco Use Types [...] on filedocumented in this encounter Care Teams Sports Equipment Racker Relationship Specialty Start Date End Date Emelina Moran MD PCP - General Internal Medicine 07/02/15 06/23/16 Sara Lopez DO PCP - General Internal Medicine 06/24/16 02/12/22 Zach Anthony MD [address] [place] [phone] PCP - General Internal Medicine 02/13/22 documented as of this encounter
--- OUTSIDE RECORDS SUMMARY | 2024-09-26 08:28 | XMS_ITS | Clinical Summary ---
Author Organization [facility] Address [address] [place] [address] Care Team Providers Care Miner Operator Name Role Phone Zach Anthony MD Primary [...] Surgery Date Site/Laterality Comments HYSTEROSCOPY 08/2020 PROCEDURE: [place] HYSTEROSCOPY BX ENDOMETRIUM&/POLYPC W/WO D&C; COMMENT: Benign Medical History Medical History Date Comments ADHD (attention deficit hype ractivity disorder) 08/05/2015 DX:ADHD (attention deficit hyperactivity disorder) Depression 08/05/2015 DX:Depression; C OMMENT: therapy at [facility] Anxiety 08/05/2015 DX:Anxiety Moderate obesity [...] RESULTING AGENCY - 04/13/2022 2:00 PM EDT [id number] THINPREP PAP, IMAGED: NEGATIVE FOR SQUAMOUS INTRAEPITHELIAL [...] Recently Relevant to Health Maintenance Care Teams Miner Operator Relationship Specialty Start Date End Date Zach Anthony MD [address] [place], [place] PCP - General Internal Medicine 02/13/22
--- OUTSIDE RECORDS SUMMARY | 2024-09-26 08:28 | XMS_ITS | Encounter Summary ---
Author Organization [facility] Address [address] [place] [address] Care Team Providers Care Apprentice Cosmetologist Name Role Phone Zach Anthony MD Primary Care Provider + Encounter Details Date Type Department Care Team Description 02/20/2022 Pt. Non Urgent Medical Question [facility] [address] [place] [address] Heavenly Melendez CNM [address] [place], [place] [phone] Social History Tobacco Use Types Packs/Day Years Used Date Smoking Tobacco: Never Smokeless Tobacco: Never Alcohol Use Standard Drinks/Week Comments No 0 (1 standard drink = 0.6 oz pur e alcohol) Sex Assigned at Date Recorded Not on file Job Start Date Occupation Industry Not on file Not on file Not on file COVID-19 Exposure Response Date Recorded In the last 10 days, have yo u been in contact with someone who was confirmed or suspected to have Coronavirus/COVID-19? No / Unsure 02/16/2022 10:25 AM EDT documented as of this encounter Plan of Treatment Not on file documented as of this encounter Visit Diagnoses Not on filedocumented in this encounter Care Teams Apprentice Cosmetologist Relationship Specialty Start Date End Date Zach Anthony MD [address] [place] [address] PCP - General Internal Medicine 02/13/22 documented as of this encounter
--- OUTSIDE RECORDS SUMMARY | 2024-09-26 08:28 | XMS_ITS | Encounter Summary ---
Author Organization [facility] Address [address] [place] [address] Care Team Providers Care Fowl Blood Tester Name Role Phone Sara Lopez DO Primary Care Pro vider Unavailable Zach Anthony MD Primary Care Provider + Encounter Details Date Type Department Care Team Description 09/26/2020 Orders Only Medical Records [address] [place] [address] Rodney Vanessa DO Social History Tobacco Use Types Packs/Day Years [...] on file documented as of this encounter Procedures Procedure Name Priority Date/Time Associated Diagnosis Comments OUTSIDE PATHOLOGY Routine 09/24/2020 documented in this encounter Results * OUTSIDE PATHOLOGY (09/24/2020) Rodney Vanessa DO OUTSIDE LAB documented in this encounter Visit Diagnoses Not on filedocumented in this encounter Care Teams Fowl Blood Tester Relationship Specialty Start Date End Date Sara Lopez DO PCP - General Internal Medicine 06/24/16 02/12/22 Zach Anthony MD [address] [place] [phone] PCP - General Internal Medicine 02/13/22 documented as of this encounter
== END 2024-09-26 09:10 | disposition home or self-care (01) ==
LOC: HO.HOP 08:13
PROVIDERS: Visit Provider Counselor Mental Health
DX: F43.9 Reaction to severe stress, unspecified (principal)
CPT/HCPCS: 90837

== ENCOUNTER → 2024-09-26 08:13 | Outpatient (BNVA) | payer OTHER, SELFPAY | PROVIDERS: Visit Provider Counselor Mental Health ==

== ENCOUNTER 2024-11-08 14:46 | Outpatient (AMB) | payer OTHER, SELFPAY ==
--- NOTE | 2024-11-08 14:30 | A.OFFWM_ITS ---
Intake Intake Visit Reasons: VIDEO OP Therapy Behavioral Health Assessment Weight Management Therapy Therapy Notes Details Subjective: Patient delivered her baby boy on 10/22/2024 and presents today for a follow-up behavioral health visit via Telehealth. She reports struggling with the adjustment due to limited support at home. Her partner returned to work one week after the baby was born, leaving her to manage much of the care alone. Patient also shared feelings of guilt and disappointment related to setbacks with the baby?s weight and the need to supplement with formula. She expressed emotional and physical exhaustion, along with some anxiety about whether she is ?doing things right? as a new mother. Objective: Patient appeared tired but engaged and motivated to talk. Explored current functioning and emotional adjustment to motherhood, particularly challenges related to sleep deprivation, reduced self-care (e.g., irregular eating, lack of rest), and the demands of the stage. Provided validation and normalization of her experiences and emotional responses. Applied Cognitive Processing Therapy (CPT) techniques to explore unhelpful beliefs and reframe negative thinking related to guilt, self-expectations, and performance as a mother. Celebrated her resilience, emotional insight, and efforts to castaneda with her child despite challenges. Used a problem-solving approach to identify small, manageable strategies for self-care, rest, and asking for support. Introduced a brief mindfulness exercise to promote emotional grounding and stress reduction. Proposed initiating a behavioral activation plan to help the patient identify and engage in small, meaningful activities that promote well-being and structure during this transition. Assessment/Response: * Mental status:Tired, emotionally sensitive, but cooperative and oriented. Thought process clear. Insight and motivation present. * Functioning: Mild functional impairment due to exhaustion and low support; able to care for . * Risk: No suicidal ideation, self-harm, or harm to others reported or observed. Assessment & Plan Assessment & Plan (1) Trauma and stressor-related disorder: Code(s): F43.9 - Reaction to severe stress, unspecified Plan * Continue supportive therapy with a focus on adjustment to motherhood, emotional regulation, and realistic self-expectations. * Begin behavioral activation plan tailored to needs and available support. * Encourage ongoing use of mindfulness strategies between sessions. * Patient to identify 1?2 self-care tasks to prioritize before next session (e.g., 10-minute rest, eating a full meal, or asking for help). * Monitor for symptoms of depression and reassess support needs regularly. Next Appointment: Scheduled for 1 week via Telehealth. 11/15 at 2:30pm Telehealth Telehealth Telehealth Platform: [employer] Location of provider rendering services: other Location of patient: address on file Patient Identification confirmed using: Name, : Yes Telehealth method: video Patient verbally consented to treatment: Yes Patient verbally consented to billing insurance company: Yes Patient informed of any privacy concerns related to visit: Yes Minutes spent on Phone/Video with Pt.: 75 Coding Level of Care Code Established Pt Tele Psytx >53 mins (60074) Patient Type Established Diagnoses Trauma and stressor-related disorder F43.9 Time Spent (min) 75
--- OUTSIDE RECORDS SUMMARY | 2024-11-08 14:48 | XMS_ITS | Encounter Summary ---
Author Organization [facility] Address [address] [place] [address] Care Team Providers Care Parts Salesperson Name Role Phone Zach Anthony MD Primary Care Provider + Reason for Visit * Reason Comments E-prescribe Rx Request Encounter Details Date Type Department Care Team Description 02/20/2022 Refill OBGYN - [place] [address] [place] [address] Heavenly Melendez CNM [address] [place], [place] [phone] E-prescribe Rx Request Social History Tobacco Use Types Packs/Day Years [...] Recorded In the last 10 days, have mauricio hobbs been in contact with someone who was confirmed or suspected to have Coronavirus/COVID-19? No / Unsure 02/16/2022 10:25 AM EDT documented as of this encounter Miscellaneous Notes * Telephone Encounter - Heavenly Melendez CNM - 02/24/2022 11:54 AM EDT I refilled it for her to get her to that appointment. * Telephone Encounter - Jeb [place] - 02/23/2022 2:59 PM EDT CALLED PT, lvm . Awaiting return call Pt has problem visit 03-09-22 for irregular bleeding on ocp Inquiring if she is still requesting refill * Telephone Encounter - Kerri Crabtree - 02/23/2022 12:25 PM EDT WHEN WAS THE PATIENTS LAST ANNUAL MAKE UP WORKER EXAM? 10/18/20 Does patient have an upcoming appointment? Yes 04/03/22 (THE MEDICATION REQUESTED IS ON THE MED LIST ABOVE) Did you check the Pharmacy information above?: YES Indicate how soon the patient needs the script: BY THE END OF THE DAY Patient would like script to be: E-PRESCRIBED/FAXED TO PHARMACY Is the doctor here today?: NO Can the message wait until the doctor returns?: NO Has the patient been told that the prescription will not be filled until the end of the day? NO Payor: [employer] [facility] / Plan: EPO $30 [place] [id number] / Product Type: EPO documented in this encounter Plan of Treatment Not on file documented as of this encounter Visit Diagnoses Not on filedocumented in this encounter Care Teams Parts Salesperson Relationship Specialty Start Date End Date Zach Anthony MD [address] [place] [address] PCP - General Internal Medicine 02/13/22 documented as of this encounter
--- OUTSIDE RECORDS SUMMARY | 2024-11-08 14:48 | XMS_ITS | Encounter Summary ---
Author Organization [facility] Address [address] [place] [address] Care Team Providers Care Manometer Technician Name Role Phone Sara Lopez DO Primary Care Pro vider Unavailable Zach Anthony MD Primary Care Provider + Encounter Details Date Type Department Care Team Description 10/15/2020 [facility] Medical Records [address] [place] [phone] Abstract, Provider Social History Tobacco Use Types [...] on filedocumented in this encounter Care Teams Manometer Technician Relationship Specialty Start Date End Date Sara Lopez DO PCP - General Internal Medicine 06/24/16 02/12/22 Zach Anthony MD [address] [place] [id number] PCP - General Internal Medicine 02/13/22 documented as of this encounter
--- OUTSIDE RECORDS SUMMARY | 2024-11-08 14:48 | XMS_ITS | Clinical Summary ---
Author Organization [facility] Address [address] [place] [address] Care Team Providers Care Draw Furnace Tender Name Role Phone Zach Anthony MD Primary Care Provider + Allergies No known active allergies Medications Medication Sig Dispensed Refills Start Date End Date Status Cholecalciferol (VITAMIN D3) 20 MCG (800 UNIT) Tab Take 1 tablet by mouth daily. 30 Tab 2 07/12/2020 Active vitamin D (ERGOCALCIFEROL) 1.25 MG (36143 UT) capsule Take 1 capsule by mouth once a week for 360 days. One tablet once weekly 4 capsule 3 08/02/2020 Active Diclofenac Sodium 1 % GelIndications:Sprai n of left ankle, unspecified ligament, initial encounter Apply 2 g topically 3 times daily. 100 g 0 02/16/2022 Active Benzoyl Peroxide ([place] Benzoyl Peroxide Wash) 7 % LiquidIndications:Ac ne, [...] Last Done Comments Covid-19 Vaccine (#1) 1995 BMI CHECK/ADVISE 06/28/2024 04/06/2023, 03/2023, 12/23/2022, Additional history exists DEPRESSION SCREENING/FOLLOWUP 06/28/2024, 12/23/2022, 02/16/2022, Additional history exists SOCIAL NEEDS SCREENING 06/28/2024 12/23/2022 INFLUENZA (Season Ended) 2025 06/26/2016 CERVICAL CANCER SCREENING 04/03/20252021, 10/18/2020, 07/30/2016 BASELINE HEALTH EXAM 18-39 12/24/202712/23, 04/29/2018, 12/13/2017, Additional history exists CHOLESTEROL SCREENING 12/26/2027 12/25/2022 , 04/29/2018, 06/26/2016, Additional history exists DTAP/TDAP/TD (2 - Td or Tdap) 12/23/2032 12/23/2022 PNEUMOCOCCAL VACCINE FOR HIG H RISK PATIENTS (#1) 2060 Care Teams Draw Furnace Tender Relationship Specialty Start Date End Date Zach Anthony MD [address] [place] [phone] PCP - General Internal Medicine 02/13/22
--- OUTSIDE RECORDS SUMMARY | 2024-11-08 14:48 | XMS_ITS | Encounter Summary ---
Author Organization [facility] Address [address] [place] [address] Care Team Providers Care Hazardous Substances Engineer Name Role Phone Sara Lpoez DO Primary Care Pro vider Unavailable Zach Anthony MD Primary Care Provider + Encounter Details Date Type Department Care Team Description 01/17/2021 Pt. Non Urgent Medical Question OBGYN - [place] [address] [place] [address] Heavenly Melendez CNM [address] [place] [address] Social History Tobacco Use Types Packs/Day Years [...] on filedocumented in this encounter Care Teams Hazardous Substances Engineer Relationship Specialty Start Date End Date Sara Lopez DO PCP - General Internal Medicine 06/24/16 02/12/22 Zach Anthony MD [address] [place] [id number] PCP - General Internal Medicine 02/13/22 documented as of this encounter
--- OUTSIDE RECORDS SUMMARY | 2024-11-08 14:48 | XMS_ITS | Encounter Summary ---
Author Organization [facility] Address [address] [place] [address] Care Team Providers Care Hospital Plan Administrator Name Role Phone Emelina Moran MD Primary Care Provider Unavaila Sara Valle DO Primary Care Pro vider Unavailable Zach Anthony MD Primary Care Provider + Encounter Details Date Type Department Care Team Description 08/05/2015 Release of Information Medical Records [address] [place] [phone] Abstract, Provider Social History Tobacco Use Types [...] on filedocumented in this encounter Care Teams Hospital Plan Administrator Relationship Specialty Start Date End Date Emelina Moran MD PCP - General Internal Medicine 07/02/15 06/23/16 Sara Lopez DO PCP - General Internal Medicine 06/24/16 02/12/22 Zach Anthony MD [address] [place] [phone] PCP - General Internal Medicine 02/13/22 documented as of this encounter
--- OUTSIDE RECORDS SUMMARY | 2024-11-08 14:49 | XMS_ITS | Clinical Summary ---
Author Organization [facility] Address [address] [place] [address] Care Team Providers Care Mine Surveyor Name Role Phone Zach Anthony MD Primary [...] of cervix with negative high risk HPV /08/2020 Abnormal uterine bleeding (AUB) 10/11/2020 Overview (06/30/2024): [...] needed. Morbid obesity due to excess calories ([facility] V24, [facility] V28) 06/26/2016 ADHD (attention deficit hyperactivity disorder) 08/05/2015 Anxiety 08/05/2015 Depression 08/05/2015 Acne 02/17/2012 Hidradenitis suppurativa 02/17/2012 Immunizations Name Administration Dates Next Due Influenza trivalent, 0.5mL, preservative free (Fluarix; FluLaval; Fluzone) ages 6mo and older (Afluria) 3 years and older 06/26/2016 Tdap Tetanus diptheria acell ular pertussis (Boostrix; Adacel) 7yo and older 12/23/2022 Surgical History Surgery Date Site/Laterality Comments HYSTEROSCOPY 08/2020 PROCEDURE: ID HYSTEROSCOPY BX ENDOMETRIUM&/POLYPC W/WO D&C; COMMENT: Benign Medical History Medical History Date Comments ADHD (attention deficit hype ractivity disorder) 08/05/2015 DX:ADHD (attention deficit hyperactivity disorder) Depression 08/05/2015 DX:Depression; C OMMENT: therapy at [facility] Anxiety 08/05/2015 DX:Anxiety Moderate obesity [...] - 2023-2 5 season) 2024 Influenza Vaccine (Season Ended) 2025 06/26/2016 Cervical Cancer Screening: P ap Smear [...] age to complete this topic Meningococcal B Vaccine Aged Out No l onger eligible based on patient's age to complete [...] RESULTING AGENCY - 04/13/2022 2:00 PM EDT [id number] THINPREP PAP, IMAGED: NEGATIVE FOR SQUAMOUS INTRAEPITHELIAL [...] Recently Relevant to Health Maintenance Care Teams Mine Surveyor Relationship Specialty Start Date End Date Zach Anthony MD [address] [facility] [place], [place] PCP - General Internal Medicine 02/13/22
--- OUTSIDE RECORDS SUMMARY | 2024-11-08 14:49 | XMS_ITS | Encounter Summary ---
Author Organization [facility] Address [address] [place] [address] Care Team Providers Care Billing Administrator Name Role Phone Sara Lopez DO Primary Care Pro vider Unavailable Zach Anthony MD Primary Care Provider + Encounter Details Date Type Department Care Team Description 08/14/2016 [facility] Medical Records [address] [place] [id number] Abstract, Provider Social History Tobacco Use Types [...] on filedocumented in this encounter Care Teams Billing Administrator Relationship Specialty Start Date End Date Sara Lopez DO PCP - General Internal Medicine 06/24/16 02/12/22 Zach Anthony MD [address] [place] [phone] PCP - General Internal Medicine 02/13/22 documented as of this encounter
== END 2024-11-08 16:09 | disposition home or self-care (01) ==
LOC: HO.HOP 14:46
PROVIDERS: Visit Provider Counselor Mental Health
DX: F43.9 Reaction to severe stress, unspecified (principal)
CPT/HCPCS: 90837

== ENCOUNTER → 2024-11-08 14:46 | Outpatient (BNVA) | payer OTHER, SELFPAY | PROVIDERS: Visit Provider Counselor Mental Health ==

== ENCOUNTER 2024-11-15 14:41 | Outpatient (AMB) | payer OTHER, SELFPAY ==
--- NOTE | 2024-11-15 14:30 | A.OFFWM_ITS ---
Intake Intake Visit Reasons: VIDEO OP Therapy Behavioral Health Assessment Weight Management Therapy Therapy Notes Details Subjective: PT reports feeling better overall. She shared that she has decided to start reading again, went for a walk two days ago, and has begun watching shows at night when the baby has difficulty sleeping. She also had a conversation with her boyfriend, who is now taking one warehouse supervisor 3rd shift of 2?3 hours to allow her to get several consecutive hours of sleep and help reduce her sleep deprivation. Objective: PT presents for a f/up junior via Telehealth. . Discussed functioning, positive changes and ongoing needs. PHQ-9 administered. CBT and CPT implemented in todays session to support PT at: - Identified and challenged cognitive di stortions related to sleep and self- blame and reframing negative thoughts about parenting and rest. -Reinforcing the use of behavioral acti vation plan for her engagement in self- care activities (reading, walking, relaxing at night). - Implementing problem-solving around [facility] routines and partner support. Assessment/Response: * Mental status: Eythymic but tired. * Risk reported/identified: none. Elevated PHQ-9 scores however explained by current transitionin to becoming a parent and sleep deprovation from the stage of her child. Questionnaires PHQ-9 Over the last 2 weeks, how often have you been bothered by any of the following problems? 1. Little interest or pleasure in doing things: not at all 2. Feeling down, depressed, or hopeless: not at all 3. Trouble falling or staying asleep, or sleeping too much: nearly every day (staying asleep) 4. Feeling tired or having little energy: nearly every day 5. Poor appetite or overeating: several days 6. Feeling bad about yourself - or that you are a failure or have let yourself or your family down: several days 7. Trouble concentrating on things, such as reading the newspaper or watching television: not at all 8. Moving or speaking so slowly that other people could have noticed. Or the opposite - being so fidgety or restless that you have been moving around a lot more than usual: not at all 9. Thoughts that you would be better off or of hurting yourself in some way: not at all Total score: 8 Depression Screening Interpretation: Positive (Some Sx are explained due to and adjustment to having a . ) Depression Screening Done: Yes 47588 - PHQ-9 Billing: Yes Source: Developed by Drs. Jayson Hernandez, Joaquina Ellis, Alfie Mercer and colleagues, with an educational carlota from [employer]. Assessment & Plan Assessment & Plan (1) Trauma and stressor-related disorder: Code(s): F43.9 - Reaction to severe stress, unspecified Plan Continue sessions on a bi-weebli basis. Next junior: 11/30/2024 at 2pm. Via Telehealth. Telehealth Telehealth Telehealth Platform: [employer] Location of provider rendering services: other Location of patient: address on file Patient Identification confirmed using: Name, : Yes Telehealth method: video Patient verbally consented to treatment: Yes Patient verbally consented to billing insurance company: Yes Patient informed of any privacy concerns related to visit: Yes Minutes spent on Phone/Video with Pt.: 60 Coding Level of Care Code Established Pt Tele Psytx >53 mins (19821) Patient Type Established Diagnoses Trauma and stressor-related disorder F43.9 Additional Codes PHQ-9 - 95415 - PHQ-9 Billing: Yes ([id number]) Time Spent (min) 60
--- OUTSIDE RECORDS SUMMARY | 2024-11-15 14:50 | XMS_ITS | Encounter Summary ---
Author Organization [facility] Address [address] [place] [address] Care Team Providers Care Automotive Worker Foreman Name Role Phone Zach Anthony MD Primary Care Provider + Encounter Details Date Type Department Care Team Description 06/17/2022 Telephone Adult Medicine [address] [address] Zach Anthony MD [address] [place] [address] [phone] Social History Tobacco Use Types Packs/Day Years [...] on filedocumented in this encounter Care Teams Automotive Worker Foreman Relationship Specialty Start Date End Date Zach Anthony MD [address] [place] [address] [phone] PCP - General Internal Medicine 02/13/22 documented as of this encounter
--- OUTSIDE RECORDS SUMMARY | 2024-11-15 14:50 | XMS_ITS | Clinical Summary ---
Author Organization [facility] Address [address] [place] [address] Care Team Providers Care Supervisor Fitting Name Role Phone Zach Anthony MD Primary [...] needed. Morbid obesity due to excess calories ([facility] V24, [facility] V28) 06/26/2016 ADHD (attention deficit [...] Depression 08/05/2015 DX:Depression; C OMMENT: therapy at [facility] Anxiety 08/05/2015 DX:Anxiety Moderate obesity [...] RESULTING AGENCY - 04/13/2022 2:00 PM EDT [id number] THINPREP PAP, IMAGED: NEGATIVE FOR SQUAMOUS INTRAEPITHELIAL [...] Recently Relevant to Health Maintenance Care Teams Supervisor Fitting Relationship Specialty Start Date End Date Zach Anthony MD [address] [facility] [place], [place] PCP - General Internal Medicine 02/13/22
--- OUTSIDE RECORDS SUMMARY | 2024-11-15 14:50 | XMS_ITS | Clinical Summary ---
Author Organization [facility] Address [address] [place] [address] Care Team Providers Care Leveling Machine Operator Name Role Phone Zach Anthony MD Primary Care Provider + Allergies No known active allergies Medications Medication Sig Dispensed Refills Start Date End Date Status Cholecalciferol (VITAMIN D3) 20 MCG (800 UNIT) Tab Take 1 tablet by mouth daily. 30 Tab 2 07/12/2020 Active vitamin D (ERGOCALCIFEROL) 1.25 MG (88760 UT) capsule Take 1 capsule by mouth once a week for 360 days. One tablet once weekly 4 capsule 3 08/02/2020 Active Diclofenac Sodium 1 % GelIndications:Sprai n of left ankle, unspecified ligament, initial encounter Apply 2 g topically 3 times daily. 100 g 0 02/16/2022 Active Benzoyl Peroxide ([place] Benzoyl Peroxide Wash) 7 % LiquidIndications:Ac ne, [...] H RISK PATIENTS (#1) 2060 Care Teams Leveling Machine Operator Relationship Specialty Start Date End Date Zach Anthoyn MD [address] [place] [phone] PCP - General Internal Medicine 02/13/22
--- OUTSIDE RECORDS SUMMARY | 2024-11-15 14:50 | XMS_ITS | Encounter Summary ---
Author Organization [facility] Address [address] [place] [address] Care Team Providers Care Stage Set Designer Name Role Phone Sara Lopez DO Primary Care Pro vider Unavailable Zach Anthony MD Primary Care Provider + Encounter Details Date Type Department Care Team Description 09/26/2020 Orders Only Medical Records [address] [place] [address] Rodney Vanessa DO Social History Tobacco Use [...] on filedocumented in this encounter Care Teams Stage Set Designer Relationship Specialty Start Date End Date Sara Lopez DO PCP - General Internal Medicine 06/24/16 02/12/22 Zach Anthony MD [address] [place] [address] PCP - General Internal Medicine 02/13/22 documented as of this encounter
--- OUTSIDE RECORDS SUMMARY | 2024-11-15 14:50 | XMS_ITS | Encounter Summary ---
Author Organization [facility] Address [address] [place] [address] Care Team Providers Care Line Leader Name Role Phone Emelina Moran MD Primary Care Provider Unavaila Sara Valle DO Primary Care Pro vider Unavailable Zach Anthony MD Primary Care Provider + Encounter Details Date Type Department Care Team Description 03/24/2016 Topline Beading Machine Tender Report Medical Records [address] [place] [address] Abstract, Provider Social History Tobacco Use Types [...] on filedocumented in this encounter Care Teams Line Leader Relationship Specialty Start Date End Date Emelina Moran MD PCP - General Internal Medicine 07/02/15 06/23/16 Sara Lopez DO PCP - General Internal Medicine 06/24/16 02/12/22 Zach Anthony MD [address] [place] [phone] PCP - General Internal Medicine 02/13/22 documented as of this encounter
--- OUTSIDE RECORDS SUMMARY | 2024-11-15 14:50 | XMS_ITS | Encounter Summary ---
Author Organization [facility] Address [address] [place] [address] Care Team Providers Care Sales Development Director Name Role Phone Sara Lopez DO Primary Care Pro vider Unavailable Zach Anthony MD Primary Care Provider + Encounter Details Date Type Department Care Team Description 01/17/2021 Pt. Non Urgent Medical Question OBGYN - [place] [address] [place] [address] Heavenly Melendez CNM [address] [place] [address] Social History Tobacco Use Types Packs/Day Years [...] on filedocumented in this encounter Care Teams Sales Development Director Relationship Specialty Start Date End Date Sara Lopez DO PCP - General Internal Medicine 06/24/16 02/12/22 Zach Anthony MD [address] [place] [phone] PCP - General Internal Medicine 02/13/22 documented as of this encounter
--- OUTSIDE RECORDS SUMMARY | 2024-11-15 14:50 | XMS_ITS | Encounter Summary ---
Author Organization [facility] Address [address] [place] [address] Care Team Providers Care Manager Production Name Role Phone Zach Anthony MD Primary Care Provider + Encounter Details Date Type Department Care Team Description 02/20/2022 Pt. Non Urgent Medical Question [facility] [place] [address] [place] [address] Heavenly Melendez CNM [address] [place], [place] [phone] Social History Tobacco Use Types Packs/Day Years [...] on filedocumented in this encounter Care Teams Manager Production Relationship Specialty Start Date End Date Zach Anthony MD [address] [place] [address] PCP - General Internal Medicine 02/13/22 documented as of this encounter
--- OUTSIDE RECORDS SUMMARY | 2024-11-15 14:50 | XMS_ITS | Encounter Summary ---
Author Organization [facility] Address [address] [place] [address] Care Team Providers Care Warehouse Receiving Supervisor Name Role Phone Sara Lopez DO Primary Care Pro vider Unavailable Zach Anthony MD Primary Care Provider + Encounter Details Date Type Department Care Team Description 10/15/2020 [facility] Medical Records [address] [place] [address] Abstract, Provider Social History Tobacco Use Types [...] on filedocumented in this encounter Care Teams Warehouse Receiving Supervisor Relationship Specialty Start Date End Date Sara Lopez DO PCP - General Internal Medicine 06/24/16 02/12/22 Zach Anthony MD [address] [place] [phone] PCP - General Internal Medicine 02/13/22 documented as of this encounter
== END 2024-11-15 15:29 | disposition home or self-care (01) ==
LOC: HO.HOP 14:41
PROVIDERS: Visit Provider Counselor Mental Health
DX: F43.9 Reaction to severe stress, unspecified (principal)
CPT/HCPCS: 90837

== ENCOUNTER 2024-11-30 14:27 | Outpatient (AMB) | payer OTHER, SELFPAY ==
--- NOTE | 2024-11-30 14:10 | A.OFFWM_ITS ---
Intake Intake Visit Reasons: VIDEO OP Therapy Behavioral Health Assessment Weight Management Therapy Therapy Notes Details Subjective: Patient is a female with a history of anxiety. She reports her mood as generally stable but notes increased irritability, especially when sleep is limited. She acknowledges neglecting basic self-care, including inconsistent meals, poor hydration, and minimal attention to hygiene or personal needs. While she denies crying spells, she reports low motivation to leave the house and engage in outside activities. Objective: Session conducted via telehealth (video). Interventions provided during session: * Psychoeducation on the impact of sleep, nutrition, and hydration on emotional regulation and anxiety. * Explored barriers to self-care and introduced small, achievable behavioral goals. * Introduced basic CBT techniques to challenge unhelpful thoughts related to motivation and self-worth. * Provided validation for challenges and normalized emotional fluctuations during this period. Assessment/Response: * Mental status: Mood stable but irritable; affect appropriate; insight and judgment fair. Sleep disruption and decreased motivation noted. * Risk reported/identified: None. Assessment & Plan Assessment & Plan (1) Trauma and stressor-related disorder: Code(s): F43.9 - Reaction to severe stress, unspecified Plan Continue psychotherapy sessions on a bi-weekly basis to support adjustment and anxiety management. Monitor for signs of depression or worsening anxiety. * Next appointment scheduled for 12/13/24 at 1:00 PM via video. Telehealth Telehealth Telehealth Platform: [employer] Location of provider rendering services: other (Home office. [place], [place]) Location of patient: address on file Patient Identification confirmed using: Name, : Yes Telehealth method: video Patient verbally consented to treatment: Yes Patient verbally consented to billing insurance company: Yes Patient informed of any privacy concerns related to visit: Yes Minutes spent on Phone/Video with Pt.: 55 Coding Level of Care Code Established Pt Tele Psytx >53 mins (01049) Patient Type Established Diagnoses Trauma and stressor-related disorder F43.9
--- OUTSIDE RECORDS SUMMARY | 2024-11-30 17:07 | XMS_ITS | Clinical Summary ---
Author Organization [facility] Address [address] [place] [address] Care Team Providers Care Roguer Name Role Phone Zach Anthony MD Primary [...] needed. Morbid obesity due to excess calories ([facility] V24, [facility] V28) 06/26/2016 ADHD (attention deficit [...] Surgery Date Site/Laterality Comments HYSTEROSCOPY 08/2020 PROCEDURE: [place] HYSTEROSCOPY BX ENDOMETRIUM&/POLYPC W/WO D&C; COMMENT: Benign Medical History Medical History Date Comments ADHD (attention deficit hype ractivity disorder) 08/05/2015 DX:ADHD (attention deficit hyperactivity disorder) Depression 08/05/2015 DX:Depression; C OMMENT: therapy at [facility] Anxiety 08/05/2015 DX:Anxiety Moderate obesity 08/05/2015 DX:Moderate [...] RESULTING AGENCY - 04/13/2022 2:00 PM EDT [id number] THINPREP PAP, IMAGED: NEGATIVE FOR SQUAMOUS INTRAEPITHELIAL [...] Recently Relevant to Health Maintenance Care Teams Roguer Relationship Specialty Start Date End Date Zach Anthony MD [address] [facility] [place], [place] PCP - General Internal Medicine 02/13/22
== END 2024-11-30 15:15 | disposition home or self-care (01) ==
LOC: HO.HOP 14:27
PROVIDERS: Visit Provider Counselor Mental Health
DX: F43.9 Reaction to severe stress, unspecified (principal)
CPT/HCPCS: 90837

== ENCOUNTER 2024-12-13 13:33 | Outpatient (AMB) | payer OTHER, SELFPAY ==
--- NOTE | 2024-12-13 13:05 | A.OFFWM_ITS ---
Intake Intake Visit Reasons: VIDEO OP Therapy Behavioral Health Assessment Weight Management Therapy Therapy Notes Details Subjective: Patient shared that she recently took some personal time for self-care and initially experienced anxiety when leaving her child in someone else?s care. She noted that the anxiety decreased with time and felt more comfortable during a subsequent outing. Patient reported some tension in her relationship related to differing views on childcare arrangements. She also described ongoing issues with her partner that have been building over time, leading to feelings of resentment and emotional isolation in her experience of motherhood. Additionally, she has been making an effort to stay on top of her self-care, including showering daily and eating three meals a day. Objective: PT presents for a f/up visit via Telehealth. . Discussed functioning and ongoing needs. Validated the patient?s emotional experience of anxiety related to leaving her child and normalized the difficulty of adjusting to new caregiving dynamics. Explored cognitive distortions and underlying beliefs/fears contributing to anxiety and guilt around childcare, using CBT techniques to promote more balanced thinking. Supported self-reflection on the evolving identity and emotional challenges of motherhood, emphasizing emotional validation and self-compassion. Facilitated communication strategies to help the patient address and navigate ongoing relationship tension, including discussing differences in parenting expectations and boundaries around roles/expectations and other financial-re situations. Identified signs of emotional isolation and encouraged patient to explore social supports and ways to reconnect with her partner. Reinforced strengths-based behaviors, highlighting her efforts to maintain daily routines, engage in basic self-care, and take steps toward personal well-being. Collaboratively developed a short-term self-care plan, with practical, realistic goals to maintain emotional stability and promote continued progress. Assessment/Response: * Mental status: sensitive and overwhelmed but not depressed, reported good functioning and sleeping better. Oriented x3, alert, open, engaged. * Risk reported/identified: None. Assessment & Plan Assessment & Plan (1) Trauma and stressor-related disorder: Code(s): F43.9 - Reaction to severe stress, unspecified Plan We will continue meeting on a bi-weekly basis. Next junior: 12/27/2024 at 1pm. Video. Telehealth Telehealth Telehealth Platform: [facility] Location of provider rendering services: other Location of patient: address on file Patient Identification confirmed using: Name, : Yes Telehealth method: video Patient verbally consented to treatment: Yes Patient verbally consented to billing insurance company: Yes Patient informed of any privacy concerns related to visit: Yes Minutes spent on Phone/Video with Pt.: 60 Coding Level of Care Code Established Pt Tele Psytx >53 mins ([id number]) Patient Type Established Diagnoses Trauma and stressor-related disorder F43.9 Time Spent (min) 60
== END 2024-12-13 14:20 | disposition home or self-care (01) ==
LOC: HO.HOP 13:33
PROVIDERS: Visit Provider Counselor Mental Health
DX: F43.9 Reaction to severe stress, unspecified (principal)
CPT/HCPCS: 90837

== ENCOUNTER 2024-12-27 13:23 | Outpatient (AMB) | payer OTHER, SELFPAY ==
--- NOTE | 2024-12-27 13:05 | A.OFFWM_ITS ---
Intake Intake Visit Reasons: VIDEO OP Therapy Behavioral Health Assessment Weight Management Therapy Therapy Notes Details Subjective: The patient reports experiencing emotional ups and downs since the of her baby. She notes increased irritability and mood fluctuations, and describes ongoing arguments with her partner, which have contributed to her stress. She denies any thoughts of self-harm or harm to others. Objective: The patient presents for a behavioral health follow-up visit. Discussed functioning and ongoing challenges. Interventions provided during the session included: * Supportive counseling focused on emotional regulation and coping strategies for mood fluctuations. * Psychoeducation regarding the normalcy of emotional changes after childbirth and the impact of sleep and relationship stressors. * Brief problem-solving around communication with her partner and identifying sources of support. * Screening for safety concerns, including assessment for suicidal or homicidal ideation. Assessment/Response: * Mental status: Alert and oriented x3. Mood is described as ?up and down,? with some irritability. Thought process is logical and goal-directed. No evidence of psychosis or cognitive impairment. * Risk reported/identified: None. Assessment & Plan Assessment & Plan (1) Trauma and stressor-related disorder: Code(s): F43.9 - Reaction to severe stress, unspecified Plan Continue bi-weekly behavioral health visits for ongoing support and monitoring. Next appointment scheduled for 01/10/25 at 1pm, Telehealth Telehealth Telehealth Telehealth Platform: [employer] Location of provider rendering services: other (Home office. [place], [place]) Location of patient: address on file Patient Identification confirmed using: Name, : Yes Telehealth method: video Patient verbally consented to treatment: Yes Patient verbally consented to billing insurance company: Yes Patient informed of any privacy concerns related to visit: Yes Minutes spent on Phone/Video with Pt.: 55 Coding Level of Care Code Established Pt Tele Psytx >53 mins ([id number]) Patient Type Established Diagnoses Trauma and stressor-related disorder F43.9 Time Spent (min) 55
--- OUTSIDE RECORDS SUMMARY | 2024-12-27 13:58 | XMS_ITS | Clinical Summary ---
Author Organization [facility] Address [address] [place] [address] Care Team Providers Care Packaging Supervisor Name Role Phone Zach Anthony MD Primary [...] Morbid obesity due to excess calories ([facility], [facility] V[facility]) 06/26/2016 ADHD (attention [...] Surgery Date Site/Laterality Comments HYSTEROSCOPY 08/2020 PROCEDURE: [place] HYSTEROSCOPY BX ENDOMETRIUM&/POLYPC W/WO D&C; COMMENT: Benign Medical History Medical History Date Comments ADHD (attention deficit hype ractivity disorder) 08/05/2015 DX:ADHD (attention deficit hyperactivity disorder) Depression 08/05/2015 DX:Depression; C OMMENT: therapy at [facility] Anxiety 08/05/2015 DX:Anxiety Moderate obesity [...] RESULTING AGENCY - 04/13/2022 2:00 PM EDT [id number] THINPREP PAP, IMAGED: NEGATIVE FOR SQUAMOUS INTRAEPITHELIAL [...] Recently Relevant to Health Maintenance Care Teams Packaging Supervisor Relationship Specialty Start Date End Date Zach Anthony MD [address] [facility] [place], [place] PCP - General Internal Medicine 02/13/22
== END 2024-12-27 14:05 | disposition home or self-care (01) ==
LOC: HO.HOP 13:23
PROVIDERS: Visit Provider Counselor Mental Health
DX: F43.9 Reaction to severe stress, unspecified (principal)
CPT/HCPCS: 90837

== ENCOUNTER 2025-01-24 13:18 | Outpatient (AMB) | payer OTHER, SELFPAY ==
--- NOTE | 2025-01-24 13:00 | A.OFFWM_ITS ---
Intake Intake Visit Reasons: VIDEO OP Therapy Behavioral Health Assessment Weight Management Therapy Therapy Notes Details Subjective: Patient reports ongoing difficulties with mood, attributing much of her distress to external circumstances beyond her control. She describes increased tension in her relationship, specifically noting that her partner is making poor financial decisions, which has contributed to her stress. Additionally, the patient reports poor sleep and increased worry, which she feels are related to her current life stressors. Objective: Patient attended a follow-up session via Telehealth. The session focused on assessing current functioning, identifying ongoing challenges, and exploring patient needs. Interventions included stress management techniques, processing of emotional triggers, and discussion of emotional responses. Therapeutic approaches utilized included reflective listening, mindfulness exercises, and implementation of coping skills. Patient?s feelings were validated and normalized throughout the session. Assessment/Response: * Mental status: Patient was alert and oriented x3. Mood appeared anxious and dysphoric, with congruent affect. Thought processes were logical and goal- directed. No evidence of psychosis or cognitive impairment. * Risk reported/identified: Patient denied any current suicidal or homicidal ideation, intent, or plan. No acute safety concerns identified during the session. Assessment & Plan Assessment & Plan (1) Trauma and stressor-related disorder: Code(s): F43.9 - Reaction to severe stress, unspecified Plan -Continue with biweekly therapy sessions. Next appointment scheduled for 02/07/2025 via video. -Will continue to monitor mood, sleep, and relationship stressors. -Encourage ongoing use of mindfulness and coping strategies discussed in session. Telehealth Telehealth Telehealth Platform: [employer] Location of provider rendering services: other (Home office. [place], [place]) Location of patient: address on file Patient Identification confirmed using: Name, : Yes Telehealth method: video Patient verbally consented to treatment: Yes Patient verbally consented to billing insurance company: Yes Patient informed of any privacy concerns related to visit: Yes Minutes spent on Phone/Video with Pt.: 75 Coding Level of Care Code Established Pt Tele Psytx >53 mins ([id number]) Patient Type Established Diagnoses Trauma and stressor-related disorder F43.9 Time Spent (min) 75
--- OUTSIDE RECORDS SUMMARY | 2025-01-24 13:50 | XMS_ITS | Clinical Summary ---
Author Organization [facility] Address [address] [place] [address] Care Team Providers Care Glaze Wiper Name Role Phone Zach Anthony MD Primary [...] needed. Morbid obesity due to excess calories ([facility] V[facility], [facility] V28) 06/26/2016 ADHD (attention deficit hyperactivity disorder) 08/05/2015 Anxiety 08/05/2015 Depression 08/05/2015 Acne 02/17/2012 Hidradenitis suppurativa 02/17/2012 Immunizations Name Administration Dates Next Due Influenza trivalent, 0.5mL, preservative free (Fluarix; FluLaval; Fluzone) ages 6mo and older (Afluria) 3 years and older 06/26/2016 Tdap Tetanus diptheria acell ular pertussis (Boostrix; Adacel) 7yo and older 12/23/2022 Surgical History Surgery Date Site/Laterality Comments HYSTEROSCOPY 08/2020 PROCEDURE: [place] HYSTEROSCOPY BX ENDOMETRIUM&/POLYPC W/WO D&C; COMMENT: Benign Medical History Medical History Date Comments ADHD (attention deficit hype ractivity disorder) 08/05/2015 DX:ADHD (attention deficit hyperactivity disorder) Depression 08/05/2015 DX:Depression; C OMMENT: therapy at [facility] Anxiety 08/05/2015 DX:Anxiety Moderate obesity [...] of 3 - 19+ 3-dose series) 2014 HIV Screening 06/06/2022 Hepatitis C Screening 06/06/2022 Social Influencers of Health Screening 06/06/2022 COVID-19 Vaccine ( - 2023-2 5 season) 2024 Depression Screening 06/28/2024 Influenza Vaccine (#1) 2025 06/26/2016 Cervical Cancer Screening: P ap [...] 5 Years) and At-Risk Patients (6 to 49 Years) Aged Out No longer eligible b [...] RESULTING AGENCY - 04/13/2022 2:00 PM EDT [id number] THINPREP PAP, IMAGED: NEGATIVE FOR SQUAMOUS INTRAEPITHELIAL [...] Recently Relevant to Health Maintenance Care Teams Glaze Wiper Relationship Specialty Start Date End Date Zach Anthony MD [address] [facility] [place], [place] PCP - General Internal Medicine 02/13/22
== END 2025-01-24 14:07 | disposition home or self-care (01) ==
LOC: HO.HOP 13:18
PROVIDERS: Visit Provider Counselor Mental Health
DX: F43.9 Reaction to severe stress, unspecified (principal)
CPT/HCPCS: 90837

== ENCOUNTER 2025-02-07 13:23 | Outpatient (AMB) | payer OTHER, SELFPAY ==
--- NOTE | 2025-02-07 13:10 | A.OFFWM_ITS ---
Intake Intake Visit Reasons: VIDEO OP Therapy Behavioral Health Assessment Weight Management Therapy Therapy Notes Details Subjective: Patient reports she is recovering from COVID-19. She describes feeling down and lonely, and is experiencing significant stress related to her parents? housing situation. Objective: Patient attended a follow-up visit via Telehealth. She appeared fatigued but was engaged and communicative throughout the session. Interventions focused on self-care strategies to support her physical and emotional recovery from COVID-19. CBT-based techniques were used to help the patient identify and challenge negative thoughts contributing to her low mood and loneliness. Stress management skills, including relaxation exercises and mindfulness, were introduced to help her cope with ongoing stressors. Problem- solving approaches were explored to address her parents? housing situation, with an emphasis on setting healthy boundaries and supporting her parents from an assertive and self-protective perspective. The patient was encouraged to prioritize her own well-being while remaining supportive, and to identify small, manageable steps she can take to reduce overwhelm. Assessment/Response: * Mental status: Patient is alert and oriented x3, mood is described as ?down? and ?stressed,? affect is congruent, thought process is logical and organized. No evidence of psychosis or charleen. * Risk reported/identified: none. Assessment & Plan Assessment & Plan (1) Trauma and stressor-related disorder: Code(s): F43.9 - Reaction to severe stress, unspecified Plan Continue bi-weekly sessions. Next appointment scheduled for 02/21/2025. Patient will continue to practice self-care, utilize stress management techniques, and work on assertive communication and problem-solving skills. Telehealth Telehealth Telehealth Platform: [employer] Location of provider rendering services: other (Home office. [place], [place]) Location of patient: address on file Patient Identification confirmed using: Name, : Yes Telehealth method: video Patient verbally consented to treatment: Yes Patient verbally consented to billing insurance company: Yes Patient informed of any privacy concerns related to visit: Yes Minutes spent on Phone/Video with Pt.: 50 Coding Level of Care Code Established Pt Tele Psytx 45 mins ([id number]) Patient Type Established Diagnoses Trauma and stressor-related disorder F43.9 Time Spent (min) 50
--- OUTSIDE RECORDS SUMMARY | 2025-02-07 13:49 | XMS_ITS | Clinical Summary ---
Author Organization [facility] Address [address] [place] [address] Care Team Providers Care Auction Clerk Name Role Phone Zach Anthony MD Primary [...] needed. Morbid obesity due to excess calories ([facility] V24, [facility] V28) 06/26/2016 ADHD (attention deficit hyperactivity disorder) 08/05/2015 Anxiety 08/05/2015 Depression 08/05/2015 Acne 02/17/2012 Hidradenitis suppurativa 02/17/2012 Immunizations Name Administration Dates Next Due Influenza trivalent, 0.5mL, preservative free (Fluarix; FluLaval; Fluzone) ages 6mo and older (Afluria) 3 years and older 06/26/2016 Tdap Tetanus diptheria acell ular pertussis (Boostrix; Adacel) 7yo and older 12/23/2022 Surgical History Surgery Date Site/Laterality Comments HYSTEROSCOPY 08/2020 PROCEDURE: [place] HYSTEROSCOPY BX ENDOMETRIUM&/POLYPC W/WO D&C; COMMENT: Benign Medical History Medical History Date Comments ADHD (attention deficit hype ractivity disorder) 08/05/2015 DX:ADHD (attention deficit hyperactivity disorder) Depression 08/05/2015 DX:Depression; C OMMENT: therapy at [facility] Anxiety 08/05/2015 DX:Anxiety Moderate obesity 08/05/2015 [...] RESULTING AGENCY - 04/13/2022 2:00 PM EDT [id number] THINPREP PAP, IMAGED: NEGATIVE FOR SQUAMOUS INTRAEPITHELIAL [...] Recently Relevant to Health Maintenance Care Teams Auction Clerk Relationship Specialty Start Date End Date Zach Anthony MD [address] [facility] [place] [facility] [place], [place] PCP - General Internal Medicine 02/13/22
== END 2025-02-07 14:41 | disposition home or self-care (01) ==
LOC: HO.HOP 13:23
PROVIDERS: Visit Provider Counselor Mental Health
DX: F43.9 Reaction to severe stress, unspecified (principal)
CPT/HCPCS: 90834

== ENCOUNTER 2025-02-21 13:09 | Outpatient (AMB) | payer OTHER, SELFPAY ==
--- NOTE | 2025-02-21 13:05 | A.OFFWM_ITS ---
Intake Intake Visit Reasons: VIDEO OP Therapy Behavioral Health Assessment Weight Management Therapy Therapy Notes Details Subjective: Patient reports experiencing emotional ups and downs, with significant frustration related to her current life circumstances. She shares that her boyfriend has lost his job again, which has increased her anxiety due to concerns about potential financial difficulties. The patient describes frequent overthinking about the future of her relationship, leading to feelings of sadness and hopelessness. 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 Objective: Patient attended a follow-up behavioral health session via Telehealth. She appeared appropriately groomed, alert, and oriented to person, place, and time. During the session, supportive listening was provided to validate her current emotional experience and normalize the stressors associated with new motherhood and relationship uncertainty. Cognitive-behavioral interventions were utilized to help the patient identify and challenge negative thought patterns contributing to her anxiety and hopelessness. Problem-solving strategies were discussed to address financial concerns and relationship stress, including exploring available resources and communication techniques with her partner. Psychoeducation was provided regarding the impact of sleep deprivation on mood and coping, and relaxation techniques were introduced to help manage acute anxiety. The patient was encouraged to practice self-care and to identify small, achievable goals to foster a sense of control and accomplishment. Assessment/Response: * Mental status: Patient is alert and oriented, with mood described as anxious and sad, but affect is congruent with stated emotions. Thought processes are logical and goal-directed. No evidence of psychosis or cognitive impairment. * Risk reported/identified: Patient denies any thoughts of self-harm, harm to others, or suicidal ideation. No acute safety concerns identified during the session. Assessment & Plan Assessment & Plan (1) Trauma and stressor-related disorder: Code(s): F43.9 - Reaction to severe stress, unspecified Plan Continue behavioral health sessions on a bi-weekly basis to provide ongoing support and monitor mood and adjustment. Patient encouraged to implement coping strategies discussed in session and to reach out if symptoms worsen or if additional support is needed between appointments. * Next appointment scheduled for 03/07/20. Telehealth Telehealth Telehealth Platform: [facility] Location of provider rendering services: other (Home office. [place], [place]) Location of patient: address on file Patient Identification confirmed using: Name, : Yes Telehealth method: video Patient verbally consented to treatment: Yes Patient verbally consented to billing insurance company: Yes Patient informed of any privacy concerns related to visit: Yes Minutes spent on Phone/Video with Pt.: 50 [place] [address] Tele Psytx 45 mins Patient Type Established Diagnoses Trauma and stressor-related disorder F43.9 Time Spent (min) 50
--- OUTSIDE RECORDS SUMMARY | 2025-02-21 13:45 | XMS_ITS | Encounter Summary ---
Author Organization [facility] Address [address] [place] [address] Care Team Providers Care Signal Timer Name Role Phone Emelina Moran MD Primary Care Provider Unavaila Sara Valle DO Primary Care Pro vider Unavailable Zach Anthony MD Primary Care Provider + Encounter Details Date Type Department Care Team Description 08/05/2015 Release of Information Medical Records [address] [place] [id number] Abstract, Provider Social History Tobacco Use Types [...] on filedocumented in this encounter Care Teams Signal Timer Relationship Specialty Start Date End Date Emelina Moran MD PCP - General Internal Medicine 07/02/15 06/23/16 Sara Lopez DO PCP - General Internal Medicine 06/24/16 02/12/22 Zach Anthony MD [address] [place] [phone] PCP - General Internal Medicine 02/13/22 documented as of this encounter
--- OUTSIDE RECORDS SUMMARY | 2025-02-21 13:45 | XMS_ITS | Encounter Summary ---
Author Organization [facility] Address [address] [place] [address] Care Team Providers Care Seam Closer Name Role Phone Zach Anthony MD Primary Care Provider + Encounter Details Date Type Department Care Team Description 06/17/2022 Telephone Adult Medicine [address] [address] Zach Anthony MD [address] [place] [address] [phone] Social History Tobacco Use Types Packs/Day Years [...] on filedocumented in this encounter Care Teams Seam Closer Relationship Specialty Start Date End Date Zach Anthony MD [address] [place] [address] [phone] PCP - General Internal Medicine 02/13/22 documented as of this encounter
--- OUTSIDE RECORDS SUMMARY | 2025-02-21 13:45 | XMS_ITS | Encounter Summary ---
Author Organization [facility] Address [address] [place] [address] Care Team Providers Care Foster Care Social Worker Name Role Phone Sara Lopez DO Primary Care Pro vider Unavailable Zach Anthony MD Primary Care Provider + Encounter Details Date Type Department Care Team Description 09/26/2020 Orders Only Medical Records [address] [place] [phone] Rodney Vanessa DO Social History Tobacco Use [...] on filedocumented in this encounter Care Teams Foster Care Social Worker Relationship Specialty Start Date End Date Sara Lopez DO PCP - General Internal Medicine 06/24/16 02/12/22 Zach Anthony MD [address] [place] [phone] PCP - General Internal Medicine 02/13/22 documented as of this encounter
--- OUTSIDE RECORDS SUMMARY | 2025-02-21 13:45 | XMS_ITS | Encounter Summary ---
Author Organization [facility] Address [address] [place] [address] Care Team Providers Care Loan Underwriter Name Role Phone Zach Anthony MD Primary Care Provider + Reason for Visit * Reason Comments E-prescribe Rx Request Encounter Details Date Type Department Care Team Description 02/20/2022 Refill OBGYN - [place] [address] [place] [address] Heavenly Melendez CNM [address] [place], [place] [phone] E-prescribe Rx Request Social History Tobacco Use [...] EDT WHEN WAS THE PATIENTS LAST ANNUAL VP TREASURER EXAM? 10/18/20 Does patient have an upcoming [...] the end of the day? NO Payor: [employer] [facility] / Plan: EPO $30 [place] [id number] / Product Type: EPO documented in this encounter Plan of Treatment Not on file documented as of this encounter Visit Diagnoses Not on filedocumented in this encounter Care Teams Loan Underwriter Relationship Specialty Start Date End Date Zach Anthony MD [address] [place] [address] PCP - General Internal Medicine 02/13/22 documented as of this encounter
--- OUTSIDE RECORDS SUMMARY | 2025-02-21 13:45 | XMS_ITS | Clinical Summary ---
Author Organization [facility] Address [address] [place] [address] Care Team Providers Care Carpenter Repair Name Role Phone Zach Anthony MD Primary Care Provider + Allergies No known active allergies Medications Medication Sig Dispensed Refills Start Date End Date Status Cholecalciferol (VITAMIN D3) 20 MCG (800 UNIT) Tab Take 1 tablet by mouth daily. 30 Tab 2 07/12/2020 Active vitamin D (ERGOCALCIFEROL) 1.25 MG (72423 UT) capsule Take 1 capsule by mouth once a week for 360 days. One tablet once weekly 4 capsule 3 08/02/2020 Active Diclofenac Sodium 1 % GelIndications:Sprai n of left ankle, unspecified ligament, initial encounter Apply 2 g topically 3 times daily. 100 g 0 02/16/2022 Active Benzoyl Peroxide (OR Benzoyl Peroxide Wash) 7 % LiquidIndications:Ac ne, [...] 72 02/23/2024 3:17 PM EDT Temperature 36.4 C (97.5 F) 12/23/2022 3:06 PM EDT Respiratory Rate 14 12/28/2022 4:26 PM EDT [...] exists SOCIAL NEEDS SCREENING 06/28/2024 12/23/2022 INFLUENZA (#1) 2025 06/26/2016 CERVICAL CANCER SCREENING 04/03/20252021, 10/18/2020, 07/30/2016 BASELINE HEALTH EXAM 18-39 12/24/202712/23, 04/29/2018, 12/13/2017, Additional history exists CHOLESTEROL SCREENING 12/26/2027 12/25/2022 , 04/29/2018, 06/26/2016, Additional history exists DTAP/TDAP/TD (2 - Td or Tdap) 12/23/2032 12/23/2022 PNEUMOCOCCAL VACCINE FOR HIG H RISK PATIENTS (#1) 2060 Care Teams Carpenter Repair Relationship Specialty Start Date End Date Zach Anthony MD [address] [place] [address] [phone] PCP - General Internal Medicine 02/13/22
--- OUTSIDE RECORDS SUMMARY | 2025-02-21 13:46 | XMS_ITS | Clinical Summary ---
Author Organization [facility] Address [address] [place] [address] Care Team Providers Care Supervisor Esters And Emulsifiers Name Role Phone Zcah Anthony MD Primary Care Pr ovider Allergies [...] needed. Morbid obesity due to excess calories ([facility] V24, [facility] V28) 06/26/2016 ADHD (attention deficit hyperactivity disorder) 08/05/2015 Anxiety 08/05/2015 Depression 08/05/2015 Acne 02/17/2012 Hidradenitis suppurativa 02/17/2012 Immunizations Name Administration Dates Next Due Influenza trivalent, 0.5mL, preservative free (Fluarix; FluLaval; Fluzone) ages 6mo and older (Afluria) 3 years and older 06/26/2016 Tdap Tetanus diptheria acell ular pertussis (Boostrix; Adacel) 7yo and older 12/23/2022 Surgical History Surgery Date Site/Laterality Comments HYSTEROSCOPY 08/2020 PROCEDURE: [place] HYSTEROSCOPY BX ENDOMETRIUM&/POLYPC W/WO D&C; COMMENT: Benign Medical History Medical History Date Comments ADHD (attention deficit hype ractivity disorder) 08/05/2015 DX:ADHD (attention deficit hyperactivity disorder) Depression 08/05/2015 DX:Depression; C OMMENT: therapy at [facility] Anxiety 08/05/2015 DX:Anxiety Moderate obesity 08/05/2015 [...] RESULTING AGENCY - 04/13/2022 2:00 PM EDT [id number] THINPREP PAP, IMAGED: NEGATIVE FOR SQUAMOUS INTRAEPITHELIAL [...] Relevant to Health Maintenance Care Teams Supervisor Esters And Emulsifiers Relationship Specialty Start Date End Date Zach Anthony MD [address] [facility] [place], [place] PCP - General Internal Medicine 02/13/22
--- OUTSIDE RECORDS SUMMARY | 2025-02-21 13:46 | XMS_ITS | Encounter Summary ---
Author Organization [facility] Address [address] [place] [address] Care Team Providers Care Voice Writing Reporter Name Role Phone Sara Lopez DO Primary Care Pro vider Unavailable Zach Anthony MD Primary Care Provider + Encounter Details Date Type Department Care Team Description 10/15/2020 [facility] Medical Records [address] [place] [id number] Abstract, Provider Social History Tobacco Use Types [...] on filedocumented in this encounter Care Teams Voice Writing Reporter Relationship Specialty Start Date End Date Sara Lopez DO PCP - General Internal Medicine 06/24/16 02/12/22 Zach Anthony MD [address] [place] [id number] PCP - General Internal Medicine 02/13/22 documented as of this encounter
--- OUTSIDE RECORDS SUMMARY | 2025-02-21 13:46 | XMS_ITS | Encounter Summary ---
Author Organization [facility] Address [address] [place] [address] Care Team Providers Care Diamond Powder Technician Name Role Phone Emelina Moran MD Primary Care Provider Unavaila Sara Valle DO Primary Care Pro vider Unavailable Zach Anthony MD Primary Care Provider + Encounter Details Date Type Department Care Team Description 03/24/2016 [employer] Worker Report Medical Records [address] [place] [id number] Abstract, Provider Social History Tobacco Use Types [...] on filedocumented in this encounter Care Teams Diamond Powder Technician Relationship Specialty Start Date End Date Emelina Moran MD PCP - General Internal Medicine 07/02/15 06/23/16 Sara Lopez DO PCP - General Internal Medicine 06/24/16 02/12/22 Zach Anthony MD [address] [place] [id number] PCP - General Internal Medicine 02/13/22 documented as of this encounter
== END 2025-02-21 14:09 | disposition home or self-care (01) ==
LOC: HO.HOP 13:09
PROVIDERS: Visit Provider Counselor Mental Health
DX: F43.9 Reaction to severe stress, unspecified (principal)
CPT/HCPCS: 90834

== ENCOUNTER 2025-03-07 13:09 | Outpatient (AMB) | payer OTHER, SELFPAY ==
--- NOTE | 2025-03-07 13:00 | MHC.WMTHER ---
Intake Intake Visit Reasons: VIDEO OP Therapy Behavioral Health Assessment Weight Management Therapy Therapy Notes Details Subjective: Patient continues to report significant fatigue, primarily due to disrupted sleep as her son is not yet sleeping through the night. She is considering starting sleep training to improve both her and her child?s rest. The patient notes a slight improvement in her relationship with her partner, though she still experiences a general sense of stress. She expresses ongoing concern about her ability to manage daily responsibilities while feeling so tired, and is seeking strategies to improve her sleep and overall well-being. Objective: Patient attended a follow-up behavioral health session via Telehealth. She was appropriately dressed, alert, and oriented. The session focused on reviewing progress since the last visit, particularly regarding stress management and relationship dynamics. Supportive listening was provided to validate her ongoing challenges with sleep and parenting. Psychoeducation was reinforced about the effects of chronic sleep deprivation on mood, stress, and functioning. Cognitive-behavioral interventions were used to help the patient identify and challenge negative thought patterns related to her fatigue and stress. Together, we reviewed and refined a stepwise plan for sleep training her son, tailored to her family?s needs and values. Relaxation and mindfulness techniques were practiced in session to help her manage acute stress and promote better sleep hygiene. Communication strategies were also discussed to support ongoing improvements in her relationship with her partner and to encourage shared problem-solving around parenting and household responsibilities. Assessment/Response: Mental status: Patient is alert and oriented to person, place, and time. Mood is described as tired and stressed, with affect congruent to mood. Thought processes are logical and coherent. No evidence of psychosis or cognitive impairment. Risk reported/identified: Patient denies any thoughts of self-harm, harm to others, or suicidal ideation. No acute safety concerns identified during the session. Assessment & Plan Assessment & Plan (1) Trauma and stressor-related disorder: Code(s): F43.9 - Reaction to severe stress, unspecified Plan Continue behavioral health sessions on a bi-weekly basis to provide ongoing support and monitor mood, stress, and adjustment. Patient encouraged to implement the sleep training plan and coping strategies discussed in session, and to communicate openly with her partner about her needs. She is advised to reach out if symptoms worsen or if additional support is needed between appointments. Next appointment scheduled for 03/21/2025. Telehealth Telehealth [facility] Location of provider rendering services: other (Home office. [place], [place]) Location of patient: address on file Patient Identification confirmed using: Name, : Yes Telehealth method: video Patient verbally consented to treatment: Yes Patient verbally consented to billing insurance company: Yes Patient informed of any privacy concerns related to visit: Yes Minutes spent on Phone/Video with Pt.: 50 [place] [address] Tele Psytx 45 mins Patient Type Established Diagnoses Trauma and stressor-related disorder F43.9 Time Spent (min) 50
--- OUTSIDE RECORDS SUMMARY | 2025-03-07 16:10 | XMS_ITS | Clinical Summary ---
Author Organization [facility] Address [address] [place] [address] Care Team Providers Care Emergency Services Director Name Role Phone Zach Anthony MD Primary [...] needed. Morbid obesity due to excess calories ([facility] V24, [facility] V28) 06/26/2016 ADHD (attention deficit [...] Surgery Date Site/Laterality Comments HYSTEROSCOPY 08/2020 PROCEDURE: [place] HYSTEROSCOPY BX ENDOMETRIUM&/POLYPC W/WO D&C; COMMENT: Benign Medical History Medical History Date Comments ADHD (attention deficit hype ractivity disorder) 08/05/2015 DX:ADHD (attention deficit hyperactivity disorder) Depression 08/05/2015 DX:Depression; C OMMENT: therapy at [facility] Anxiety 08/05/2015 DX:Anxiety Moderate obesity 08/05/2015 DX:Moderate [...] 06/06/2022 Social Influencers of Health Screening 06/06/2022 Depression Screening 06/28/2024 COVID-19 Vaccine (1 - 2023-2 5 season) 2025 Influenza Vaccine (#1) 2025 06/26/2016 Cervical Cancer [...] RESULTING AGENCY - 04/13/2022 2:00 PM EDT [id number] THINPREP PAP, IMAGED: NEGATIVE FOR SQUAMOUS INTRAEPITHELIAL [...] Recently Relevant to Health Maintenance Care Teams Emergency Services Director Relationship Specialty Start Date End Date Zach Anthony MD [address] [facility] [place], [place] PCP - General Internal Medicine 02/13/22
== END 2025-03-07 14:15 | disposition home or self-care (01) ==
LOC: HO.HOP 13:09
PROVIDERS: Visit Provider Counselor Mental Health
DX: F43.9 Reaction to severe stress, unspecified (principal)
CPT/HCPCS: 90834

== ENCOUNTER 2025-03-21 13:15 | Outpatient (AMB) | payer OTHER, SELFPAY ==
--- NOTE | 2025-03-21 13:16 | MHC.WMTHER ---
Intake Intake Visit Reasons: VIDEO OP Therapy Behavioral Health Assessment Weight Management Therapy Therapy Notes Details Subjective: Patient reports upcoming return to work on 04/10/25, which is causing increased stress. She also describes recent conflict with her partner related to differing political views, expressing frustration that her partner does not respect her decision to keep politics out of the household and to respect each other's perspectives. Patient notes increased overthinking and worry about various life situations, including housing, finances, returning to work, and managing household responsibilities as a mother. These stressors have been negatively impacting her sleep and mood. Objective: Patient attended a follow-up visit via Telehealth. Engaged in cognitive behavioral therapy (CBT) interventions, including cognitive restructuring to identify and challenge unhelpful thought patterns related to overthinking and worry. Utilized problem-solving techniques to address specific stressors, such as time management strategies for balancing work and household responsibilities. Discussed how to use relaxation and grounding exercises to manage acute anxiety and improve sleep hygiene. Explored assertive communication skills to help the patient express her boundaries and needs in her relationship, particularly regarding political discussions. Reviewed the connection between thoughts, emotions, and behaviors, and developed a plan for monitoring and reframing negative self-talk. Assessment/Response: Mental status: Alert and oriented x3, mood anxious, affect congruent, thought process logical and goal-directed, no evidence of psychosis or suicidal/homicidal ideation. Risk reported/identified: none. Assessment & Plan Assessment & Plan (1) Trauma and stressor-related disorder: Code(s): F43.9 - Reaction to severe stress, unspecified Plan Continue CBT interventions with a focus on stress management, communication skills, and sleep hygiene. Patient to follow up in 2 weeks. Next: 04/04/25 at 1pm, video Telehealth Telehealth Telehealth Platform: [facility] Location of provider rendering services: practice address Location of patient: address on file Patient Identification confirmed using: Name, : Yes Telehealth method: video Patient verbally consented to treatment: Yes Patient verbally consented to billing insurance company: Yes Patient informed of any privacy concerns related to visit: Yes Minutes spent on Phone/Video with Pt.: 50 Coding Level of Care Code Established Pt Tele Psytx 45 mins ([id number]) Patient Type Established Diagnoses Trauma and stressor-related disorder F43.9 Time Spent (min) 50
--- OUTSIDE RECORDS SUMMARY | 2025-03-21 15:39 | XMS_ITS | Clinical Summary ---
Author Organization [facility] Address [address] [place] [address] Care Team Providers Care Candle Molder Name Role Phone Zach Anthony MD Primary [...] due to excess calories ([facility] V24, [facility] V28) 06/26/2016 ADHD (attention deficit [...] Depression 08/05/2015 DX:Depression; C OMMENT: therapy at [facility] Anxiety 08/05/2015 DX:Anxiety Moderate obesity 08/05/2015 [...] RESULTING AGENCY - 04/13/2022 2:00 PM EDT [id number] THINPREP PAP, IMAGED: NEGATIVE FOR SQUAMOUS INTRAEPITHELIAL [...] Recently Relevant to Health Maintenance Care Teams Candle Molder Relationship Specialty Start Date End Date Zach Anthony MD [address] [facility] [place], [place] PCP - General Internal Medicine 02/13/22
== END 2025-03-21 14:16 | disposition home or self-care (01) ==
LOC: HO.HOP 13:15
PROVIDERS: Visit Provider Counselor Mental Health
DX: F43.9 Reaction to severe stress, unspecified (principal)
CPT/HCPCS: 90834